=== PATIENT | female | born 2000 | race African-American/Black ===

== ENCOUNTER 2024-08-13 06:34 | Emergency (ER) | payer SELFPAY ==
--- NOTE | ~2024-08-13 | CT_ITS ---
EXAMINATION: CT brain wo con DATE: 08/13/2024 08:48 INDICATION: New migraine headache. TECHNIQUE: Computed tomography (CT) of the head was performed without intravenous contrast. The mA wa s adjusted according to patient size. Iterative reconstruction technique was employed. The dose-lengt h product was 605.33 mGy-cm. COMPARISON: None FINDINGS: There is no intracranial hemorrhage, acute infarction, or abnormal intracranial mass lesion . The ventricles are normal in size. The orbits are normal. There is mild mucosal thickening in the e thmoid sinuses. The mastoid air cells are normal. IMPRESSION: 1. Normal brain. Reviewed, dictated and finalized at location A. IMPRESSION: 1. Normal brain.
[2024-08-13 06:35] VITALS: BP 124/68; PULSE 75; RESP 18; TEMP 36.5; O2SAT 100
[2024-08-13] MEDS: METOCLOPRAMIDE HCL INJ 10 MG/2 ML VIAL IV PUSH (08:55)
[2024-08-13] MEDS: SODIUM CHLORIDE 0.9% IV 1,000 ML 999 ML IV CONT (08:55)
[2024-08-13] MEDS: KETOROLAC 30 MG/ML VIAL (*BKC) IV PUSH (08:55)
[2024-08-13] MEDS: diphenhydrAMINE HCl INJ 50 MG/ML VIAL 25 MG IV PUSH (08:56)
--- OUTSIDE RECORDS SUMMARY | 2024-08-13 09:10 | XMS_ITS | Referral Summary ---
Author Organization [facility] [address] [facility] Address [address] [place] [address] Care Team Providers Care Job Press Feeder Name Role Phone Unknown, Notinfile Primary Care Provider Unavail able Allergies No known active allergies Medications medroxyPROGESTERon e (PROVERA) 10 mg tablet Take 1 tablet (10 mg total) by mouth daily for 7 days 7 tablet 3 Active ondansetron ODT (ZOFRAN-ODT) 4 mg disintegrating tablet Take 1 tablet (4 mg total) by mouth every 8 (eight) hours as needed for nausea or vomiting 20 tablet 3 Active ketorolac (TORADOL) 10 mg tablet Take 1 tablet (10 mg total) by mouth every 6 (six) hours as needed for pain 20 tablet 3 Active methylPREDNISolone (Medrol, Jared,) 4 mg Dosepack follow package directions 1 packet 4 Active Active Problems Problem Noted Date Diagnosed Date Abdominal pain 07/06/2021 Social History Tobacco Use Types Packs/Day Years Used Date Smoking Tobacco: Unknown Tobacco Cessation:Counseling Given: Not Answered Personal Safety Answer Date Recorded Have you ever been in or are you currently in a harmful physical or emotional relationship or is someone making you feel afraid or unsafe? Denies 12/25/2023 Comments No Sex and Gender Information Value Date Recorded Sex Assigned at Not on file Legal Sex Female 7:22 PM FOOD ADVISER Gender Identity Female 04/25/2021 12:18 AM FOOD ADVISER Sexual Orientation Not on file Last Filed Vital Signs Vital Sign Reading Time Taken Comments Blood Pressure 134/80 12/25/2023 7:01 AM CDT Pulse 112 12/25/2023 7:01 AM CDT Temperature 37.2 C (99 F) 12/25/2023 7:01 AM CDT Respiratory Rate 18 12/25/2023 7:01 AM CDT Oxygen Saturation 97% 12/25/2023 7:01 AM CDT Inhaled Oxygen Concentration - - Weight 101.5 kg (223 lb 12.3 oz) 12/25/2023 7:01 AM CDT Height 149.9 cm (4' 11 ) 12/25/2023 7:01 AM CDT Body Mass Index 45.2 12/25/2023 7:01 AM CDT Plan of Treatment Not on file [place] [address] [address] [employer] [facility]/PPO Address: [place] [id number] [place] [id number] [facility] [employer] [facility] [employer]O Address: [address] [place] [address] [facility] [employer] Care Teams Job Press Feeder Relationship Specialty Start Date End Date Unknown, Notinfile PCP - General 12/25/23
--- OUTSIDE RECORDS SUMMARY | 2024-08-13 09:10 | XMS_ITS | Clinical Summary ---
Author Organization [facility] Address [address] [place] [address] Phone Care Team Providers Care Adhesive Bandage Making Operator Name Role Phone Nicholas Marquez MD Primary Care Provider [phone] Allergies No known active allergies Medications No known medications Active Problems No known active problems Immunizations Immunization Administration Dates Next Due Covid-19, Mrna, Lnp-s, Pf, 1 00 Mcg Or 50 Mcg Dose (MODERNA) 04/25/2021 DTAP/HEPB/IPV Vaccine 07/28/2003,05/19/2003,03/18 DTP Vaccine 06/06/2004 Hepatitis A Vaccine,unspecif ied Formulation 12/20/2004 Hepatitis B Vaccine, Pediatric/adolescent 2002 Hib Vaccine,unspecified Formulation 05/19,07/28/2003,05/19/2003,03/28 Human Papillomavirus (HPV) 9 -valent Vaccine 04/25/2021 Inactivated Polio Vaccine 02/01/2008,06/06/2004 Influenza Vaccine, Quadrivalent, PF 04/25/2021 MMR Vaccine 02/01/2008,06/06/2004 Meningococcal Group B OMV 04/25/2021 Meningococcal MCV4O 09/29/2014,09/19/2014 Meningococcal Vaccine 04/25/2021 Pneumococcal Vaccine Peds - 7 Valent 05/19/2003, 03/28/2003 Pneumococcal Vaccine, Unspec ified Formulation 01/16/2006 TDAP Vaccine 09/29/2014,09/19/2014,02/01/2008 Varicella Vaccine Live 02/01/2008,06/06/2004 Family History Relation Name Status Comments Brother Alive Father Alive Mother Alive Sister Alive Social History Tobacco Use Types Packs/Day Years Used Date Smoking Tobacco: Never Smokeless Tobacco: Never Tobacco Cessation:Counseling Given: Not Answered Alcohol Use Standard Drinks/Week Comments Yes 0 (1 standard drink = 0.6 oz pur e alcohol) occassionally Sexually Active Control Partners Comments Yes Comments Unknown Sex and Gender Information Value Date Recorded Sex Assigned at Not on file Legal Sex Female 12:11 PM CDT Gender Identity Not on file Sexual Orientation Not on file Last Filed Vital Signs Vital Sign Reading Time Taken Comments Blood Pressure 118/84 01/01/2023 2:38 PM CDT Pulse 80 01/01/2023 2:38 PM CDT Temperature 36.7 C (98 F) 01/01/2023 2:38 PM CDT Respiratory Rate 18 01/01/2023 2:38 PM CDT Oxygen Saturation - - Inhaled Oxygen Concentration - - Weight 99.8 kg (220 lb) 01/01/2023 2:38 PM CDT Height 152.4 cm (5') 01/01/2023 2:38 PM CDT Body Mass Index 42.97 01/01/2023 2:38 PM CDT Plan of Treatment Health Maintenance Due Date Last Done Comments Hepatitis C Virus (HCV) Screening 2002 Human Papillomavirus (HPV) Immunization (2 - 3-dose series) 05/23/2021 04/25/2021 Meningococcal B Immunization (2 of 2 - Bexsero SCDM 2-dose series) 10/24/2021 04/25/2021 Pap Smear 12/31/2023 Influenza Immunization (#1) 2024 04/25/2021 SARS-COV-2 Immunization (2 - season) 2024 04/25/2021 DTaP/Tdap/Td Immunization (8 - Td or Tdap) 09/29/2024 09/29/2014, 09/19/2014, 02/01/2008, Additional history exists Respiratory Syncytial Virus (RSV) Immunization (Adult) (1 - 1-dose 75+ series) 2077 Hepatitis B Immunization Completed 004, 05/19/2003, 03/28/2003, Additional history exists Pneumococcal Immunization Combined Aged Out 01/16/2006, 05/19/2003, 03/28/2003 No longer eligible based on patient's age to complete this topic Meningococcal Immunization (ACWY) Completed 04/25/2021, 09/29/2014, 09/19/2014 Rotavirus Immunization Aged Out No lo nger eligible based on patient's age to complete this topic Insurance [place] [address] [place] [address] Care Teams Adhesive Bandage Making Operator Relationship Specialty Start Date End Date Nicholas Marquez MD [address] [place] [address] PCP - General Obstetrics & Gynecology 11/11/22
--- OUTSIDE RECORDS SUMMARY | 2024-08-13 09:10 | XMS_ITS | Data Portability ---
Author Organization [facility] Address [address] 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 Plan of Treatment Reminders Order Date Submit Date Provider Last Modified By Organization Details Last Modified Time Details Appointments ANNUAL 30 2024 10:00A M PATRICIA CHRISTIE NP Not available Not available Not available Lab chlamydia trachomat is + neisseria gonorrhoe ae + trichomon as vaginalis DNA panel, MAYCOL+probe , unspecifi ed specimen 2023 024 [place] [facility], [address], [place] [address], [place], [address], 12/04/2023 07:14:28 test, urine 2023 024 [email or web address] In-Office Order, Internal Use Only DO Not Attach Compendium DO Not Attach Compendium, Do Not Delete/merge, [id number] 09/29/2023 17:09:22 Referral None recorded. Procedures None recorded. Surgeries None recorded. Imaging None recorded. Medication Orders azithromy eber 500 mg tablet 2023 024 [place] [id number], [address] [facility], [place], [place], [id number], 12/02/2023 16:11:28 Lo Loestrin Fe 1 mg-10 mcg (24)/10 mcg (2) tablet 2023 024 [email or web address] [id number], [address] [facility], [place], [place], [id number], ph 10/27/2023 15:23:08 Patient TargetsNo targets recorded. Patient Instructions Encounter Date Encounter Id Patient Instructions Last Modified By Organization Details Last Modified Time 09/10/2023 [id number] A healthy lifestyle: care instructions [email or web address] Not available 09/10/2023 17:19:22 NO UNPROTECTED INTERCOURSE FROM TODAY UNTIL YOUR NEXT VISIT. Use a condom with EVERY sexual encounter to minimize your risk for sexually transmitted infection and unplanned . [email or web address] Not available 09/10/2023 17:19:03 09/23/2023 [id number] You currently have a chlamydia infection. This IS a sexually transmitted infection that you got from your partner. 1. Take Azithromycin 1 gm (one pill) one time. If you throw up after taking the medication, you will need to call the clinic to get another dose. 2. Your partner NEEDS to be treated as well. 3. Do NOT have intercourse with your partner for one week after you BOTH HAVE BEEN TREATED. 4. You should be retested in 2 months. 5. Use a condom with EVERY sexual encounter to minimize your risk for sexually transmitted infection and unplanned . You currently have bacterial vaginosis (BV). This is not a sexually transmitted infection. it is caused by an imbalance of the natural bacteria in your vagina. Insert one applicator in your vagina at bedtime for 5 nights No intercourse during treatment. Do NOT douche as it disturbs the natural balance of bacteria in the vagina and can cause infection. Avoid scented soaps or lotions. Use a basic unscented soap for only the outer skin around your vagina. Wear cotton underwear, avoid thongs, avoid spandex, leggings and wear panty liners daily. You can try probiotics. Use a condom with EVERY sexual encounter to minimize your risk for sexually transmitted infection and unplanned . [email or web address] Not available 09/23/2023 12:09:28 09/29/2023 [id number] A healthy lifestyle: care instructions [email or web address] Not available 09/29/2023 17:09:21 1. Start your pill today 2. Take one tablet of your control at the same time every day. 3. If you forget to take your pill, take it as soon as you remember. 4. If you forget to take your pill for an entire day, take 2 pills the next day. 5. If restarting or just starting your control, use a condom for the first 7 days. 6. Consistent condom use is best, as your control pill do NOT protect against sexually transmitted infections. 7. If you have slight nausea or a mild headache, take the pill at night instead of the morning. 8. If you experience severe abdominal pain, chest pain, headaches unrelieved by Tylenol, difficulty breathing, vision changes or severe leg pain, STOP taking your control pills and go to the nearest ER. [email or web address] Not available 09/29/2023 16:46:01 10/27/2023 [id number] A healthy lifestyle: care instructions [email or web address] Not available 10/27/2023 15:22:40 1. Start your pill today 2. Take one tablet of your control at the same time every day. 3. If you forget to take your pill, take it as soon as you remember. 4. If you forget to take your pill for an entire day, take 2 pills the next day. 5. If restarting or just starting your control, use a condom for the first 7 days. 6. Consistent condom use is best, as your control pill do NOT protect against sexually transmitted infections. 7. If you have slight nausea or a mild headache, take the pill at night instead of the morning. 8. If you experience severe abdominal pain, chest pain, headaches unrelieved by Tylenol, difficulty breathing, vision changes or severe leg pain, STOP taking your control pills and go to the nearest ER. [email or web address] Not available 10/27/2023 15:22:24 12/02/2023 [id number] A healthy lifestyle: care instructions [email or web address] Not available 12/02/2023 16:30:17 Do NOT douche as it disturbs the natural balance of bacteria in the vagina and can cause infection. Avoid scented soaps or lotions. Use a basic unscented soap for only the outer skin around your vagina. Wear cotton underwear, avoid thongs, avoid spandex, leggings and wear panty liners daily. You can try probiotics. Use a condom with EVERY sexual encounter to minimize your risk for sexually transmitted infection and unplanned . [email or web address] Not available 12/02/2023 16:14:35 Reason for Referral None Reported. Results Created Date Observation Date Name Description Value Unit Range Abnormal Flag Note LastModifiedBy Organization Detail LastModifiedTime 09/08/19 24 09/09/2023 INTER PRETA TION: interpretati on: Commen t Not infec cally with HCV unles s early or acute infec tion is suspe cted (whic h may be delay ed in an immun ocomp romis ed indiv idual ), or other evide nce exist s to indic ate HCV infec tion. Not Available [facility] ([facility]) [address], [place], [address], 09/09/2023 13:10:03 09/08/19 24 09/09/2023 HCV ANTIB HAMIDA RFX TO QUANT PCR HCV Ab Non Reacti ve nonrea ctive Not Available [facility] ([facility]) [address] [facility], [place], [address], 09/09/2023 13:10:04 09/08/19 24 09/09/2023 HBSAG SCREE N HBsAg screen Negati ve negati ve Not Available [facility] ([facility]) [address] [place], [address], 09/09/2023 13:10:05 09/08/19 24 09/09/2023 RPR, RFX QN RPR/C ONFIR M TP RPR Non Reacti ve nonrea ctive Not Available [facility] ([facility]) [address] [place], [address], 09/09/2023 13:10:06 09/08/19 24 09/09/2023 HIV AB/P2 4 AG WITH REFLE X HIV Ab/P24 Ag screen Non Reacti ve nonrea ctive HIV Negat marylou HIV-1 /HIV- 2 antib odies and HIV-1 p24 antig en were NOT detec cally. There is no labor atory evide nce of HIV infec tion. Not Available [facility] ([facility]) [address] [facility], [place], [address], 09/09/2023 13:10:07 09/08/19 24 09/10/2023 NUSWA B VAGIN ITIS PLUS (VG+) atopobium vaginae HIGH - 2 score abnormal Not Available [facility] ([facility]) [address] [facility], [place], [address], 09/10/2023 20:09:07 09/08/19 24 09/10/2023 NUA B VAGIN ITIS PLUS (VG+) bvab 2 HIGH - 2 score abnormal Not Available [facility] ([facility]) [address] [facility], [place], [address], 09/10/2023 20:09:07 09/08/19 24 09/10/2023 NUA B VAGIN ITIS PLUS (VG+) megasphaera 1 HIGH - 2 score abnormal Calcu late total score by sloan g the 3 indiv idual bacte rial vagin osis (BV) marke r score s toget her. Total score is inter prete d as follo ws: Total score 0-1: Indic ates the absen ce of BV. Total score 2: Indet ermin ate for BV. Addit ional clini maria ines data shoul d be evalu ated to estab marcus a diagn osis. Total score 3-6: Indic ates the prese nce of BV. This test was devel oped and its perfo rmanc e zachariah cteri stics deter mined by [facility]. It has not been clear ed or appro kyle by the Food and Drug Admin istra tion. Not Available [facility] ([facility]) [address] [facility], [place], [address], 09/10/2023 20:09:07 09/08/19 24 09/10/2023 NUSWA B VAGIN ITIS PLUS (VG+) janine albicans, MAYCOL NEGATI VE negati ve Not Available [facility] ([facility]) [address] [facility], [place], [address], 09/10/2023 20:09:07 09/08/19 24 09/10/2023 NUA B VAGIN ITIS PLUS (VG+) janine glabrata, MAYCOL NEGATI VE negati ve Not Available [facility] ([facility]) [address] [facility], [place], [address], 09/10/2023 20:09:07 09/08/19 24 09/10/2023 NUSWA B VAGIN ITIS PLUS (VG+) trich vag by MAYCOL NEGATI VE negati ve Not Available [facility] ([facility]) [address] [facility], [place], [address], 09/10/2023 20:09:07 09/08/19 24 09/10/2023 NUA B VAGIN ITIS PLUS (VG+) chlamydia trachomatis, MAYCOL POSITI VE negati ve abnormal Not Available [facility] ([facility]) [address] [facility], [place], [address], 09/10/2023 20:09:07 09/08/19 24 09/10/2023 NUA B VAGIN ITIS PLUS (VG+) neisseria gonorrhoeae, MAYCOL NEGATI VE negati ve Not Available [facility] ([facility]) [address] [facility], [place], [address], 09/10/2023 20:09:07 09/29/19 24 09/29/2023 pregn bunny test, urine HCG negati ve Not Available In-Office Order Internal Use Only DO Not Attach Compendium DO Not Attach Compendium, Do Not Delete/merge, [id number] 09/29/2023 17:05:39 12/02/19 24 12/04/2023 CT, NG, TRICH VAG BY MAYCOL chlamydia by MAYCOL NEGATI VE negati ve Not Available [facility] ([facility]) [address] [facility], [place], [address], 12/04/2023 07:14:28 12/02/19 24 12/04/2023 CT, NG, TRICH VAG BY MAYCOL gonococcus by MAYCOL NEGATI VE negati ve Not Available [facility] ([facility]) [address] [facility], [place], [address], 12/04/2023 07:14:28 12/02/19 24 12/04/2023 CT, NG, TRICH VAG BY MAYCOL trich vag by MAYCOL NEGATI VE negati ve Not Available [facility] ([facility]) [address] [facility], [place], [address], 12/04/2023 07:14:28 Result Notes None recorded. Problems Name Problem SNOMED Code Status Onset Date Resolution Date Notes Provider Name and Address Organization Details Recorded Time Obesity 576073569 Active VONDA Ballesteros-PC Attn: Accountin g,[address], [place], [address], [facility] - [facility] 5 15:19:26 Reduced visual acuity 86241130 Active VONDA Ballesteros-PC Attn: Accountin g,[address], [place], [address], [facility] - [facility] 5 15:19:26 Astigmatism 54237784 Active Will Hernandez MD [address], [place], [address], [place] [facility] 5 11:54:17 Problem Notes None recorded. Procedures Surgical History Date Name Laterality Status Provider Name and Address Organization Details Recorded Time 5 Refraction - Manifest completed Will Hernandez MD [address], [place], [address], [place] [facility] 01/19/2015 11:53:49 Imaging Results None recorded. Procedure Notes None recorded. Medical Equipment None Reported. Allergies No known drug allergies Medications Name Sig Start Date Stop Date Status Note LastModified by Organization Details LastModified Time amoxicillin 500 mg capsule TAKE 1 CAPLET BY MOUTH TWICE DAILY 09/07 completed Not Available Not Available Not Available medroxyprog esterone 10 mg tablet 09/07 completed Not Available Not Available Not Available ibuprofen 800 mg tablet 09/07 completed Not Available Not Available Not Available metronidazo le 0.75 % (37.5 mg/5 gram) vaginal gel INSERT 1 APPLICATO RFUL VAGINALLY EVERY DAY AT BEDTIME FOR 5 DAYS 09/28 completed Not Available Not Available Not Available metronidazo le 500 mg tablet TAKE 1 ORAL TABLET 2 TIMES A DAY. DO NOT DRINK ALCOHOL WHILE TAKING THIS MEDICATIO NS. TAKE WITH FOOD 09/07 completed Not Available Not Available Not Available ketorolac 10 mg tablet 09/07 completed Not Available Not Available Not Available azithromyci n 500 mg tablet TAKE 2 TABLETS BY MOUTH EVERY DAY FOR 1 DAY DIRECTED FOR CHLAMYDIA 12/01 completed Not Available Not Available Not Available FeroSul 325 mg (65 mg iron) tablet TAKE 1 TABLET BY MOUTH DAILY 12/01 completed Not Available Not Available Not Available Lo Loestrin Fe 1 mg-10 mcg (24)/10 mcg (2) tablet TAKE 1 TABLET BY MOUTH EVERY DAY DIRECTED 10/26 completed Not Available Not Available Not Available Xulane 150 mcg-35 mcg/24 hr transdermal patch USE DIRECTED 09/07 completed Not Available Not Available Not Available Blisovi Fe 1/20 (28) 1 mg-20 mcg (21)/75 mg (7) tablet TAKE 1 TABLET BY MOUTH EVERY DAY active Not Available Not Available No t Available Vitals Date Recorded Body height Provider Name an d Address Organization Details Last Updated DateTime 09/10/2023 152.4 cm Jennifer Cooper MA [facility] 09/09 17:10:01 Date Recorded Body height Provider Name an d Address Organization Details Last Updated DateTime 09/23/2023 152.4 cm Anant LY Attn: Accounting,[address] [place], [address], [facility] 09/23/2023 12:10:16 Date Recorded Body height Body mass index (BMI) Percentile per age and sex Body mass index (BMI) Body weight Heart rate Systolic blood pressure Diastolic blood pressure Provider Name and Address Organization Details Last Updated DateTime 149.86 cm 99 % 45.2 kg/m2 280994. 69 g 78 /min 80 mm[Hg] 56 mm[Hg] Jennifer Cooper MA [place] [facility] 4 16:45:37 Date Recorded Body height Provider Name an d Address Organization Details Last Updated DateTime 10/27/2023 149.86 cm Anant YL Attn: Accounting,[address] [place], [address], [place] 10/27/2023 15:16:16 Date Recorded Body height Body mass index (BMI) Body mass index (BMI) Percentile per age and sex Body weight Heart rate Systolic blood pressure Diastolic blood pressure Provider Name and Address Organization Details Last Updated DateTime 149.86 cm 45.7 kg/m2 99 % 983195. 67 g 84 /min 105 mm[Hg] 67 mm[Hg] Jennifer Cooper MA [place] 16:14:29 Social History Question Answer Notes LastModified by Organizat ion Details LastModified Time Tobacco Smoking Status Never Smoker JUAN CARLOS Ballesteros Attn: Accounting,[address] [place], [address], [facility] - [facility] 09/29/2014 15:17:47 What Is Your Level Of Alcohol Consumption? Occasional Information not available 09/08/2023 Which Illicit Or Recreational Drugs Have You Used? Marijuana Information not available 09/08/2023 Have There Been Any Changes To Your Family Or Social Situation? No Information no t available 09/08/2023 How Many Years Have You Used Illicit Or Recreational Drugs? 5 Information not available 09/08/2023 What Was The Date Of Your Most Recent Tobacco Screening? 09/08/2023 Information not available 09/08/2023 Do You Have Any Pets? No Information not available 09/08/2023 Difficulty Reading? Yes Information not available 01/19/2015 Do You Have Smoke And Carbon Monoxide Detectors In Your Home? Yes Information not available 09/08/2023 Are You Passively Exposed To Smoke? No Information no t available 09/08/2023 Do You Use Any Illicit Or Recreational Drugs? Yes Information not available 09/08/2023 Difficulty Watching TV? No Information not available 01/19/2015 Have You Used IV Drugs? No Information not available 09/08/2023 Sex: Unknown Functional Status Question Answer Note LastModified by Organizat ion Details LastModified Time Difficulty driving at night? minor don't drive Information not available 01/19/2015 Mental Status None recorded. Family History Nothing Reported. Medical History Condition Response Blood Diseases N Ear or Hearing Problems N Thyroid Problems N Depression N Developmental or Behavioral Disorders N Skin Problems N Premature N Anemia N Constipation N Anxiety Disorder N Diabetes N Muscle, Joint, or Bone Problems N Bedwetting N Vision or Eye Problems N Heart Problems/Murmur N Seizures/Epilepsy N Head Injury/Concussion N Cancer N Asthma N Allergies N ADHD N Bladder or Kidney Problems N Headaches N Chicken Pox N Autism Spectrum Disorder (ASD) N Gynecological History Statement/Question Response Flow Heavy On BCP's at Conception? N STIs/STDs N Duration of Flow (days) 7 Age at Menarche 14 Current Control Method Condoms Age at First Child 2 Frequency of Cycle (Q days) 23 Sexually Active? Y Menses Monthly Y Sexual Problems? N LMP Definite Obstetrics History GPAL:G 0 P 0 0 0 0 Immunizations Vaccine Type Date Status Note Provider Nam e and Address Organization Details Recorded Time DTP 3 completed Ila Tsang [place], [place] [facility] 09/08/2014 16:53:25 DTP 4 completed KHOI [place], [place] [facility] 09/08/2014 16:53:47 DTP 4 diane Tsang [place], [place] [facility] 09/08/2014 16:54:09 DTP 5 completed [place] [facility] 09/08/2014 16:54:21 Tdap 8 completed PATRICIA CHRISTIE NP Attn: Accounting,[address] [place], [address], [place] [facility] 09/08/2023 15:49:03 IPV 3 KHO[place] [facility] 09/08/2014 16:54:49 IPV 4 completed Ila Tsang [place] [facility] 09/08/2014 16:56:27 IPV 4 completed Ila Ts[place] [facility] 09/08/2014 16:56:40 IPV 8 completed PATRICIA CHRISTIE NP Attn: Accounting,[address] [facility], [place], [address], [place] [facility] 09/08/2023 15:49:03 Hib, unspecified formulation 3 completed Ila [place] [facility] 09/08/2014 16:57:12 Hib, unspecified formulation 4 completed Ila [place] [facility] 09/08/2014 16:57:29 IPV 4 completed Ila [place] [facility] 09/08/2014 16:57:43 IPV 5 completed Ila [place] [facility] 09/08/2014 16:58:00 Hep B, unspecified formulation 3 completed PATRICIA CHRISTIE NP Attn: Accounting,[address] [facility], [place], [address], [place] [facility] 09/08/2023 15:49:03 Hep B, unspecified formulation 3 completed PATRICIA CHRISTIE NP Attn: Accounting,[address] [place], [address], [place] [facility] 09/08/2023 15:49:03 Hep B, unspecified formulation 4 completed Ila [place] [facility] 09/08/2014 16:58:59 Hep B, unspecified formulation 4 completed Ila [place] [facility] 09/08/2014 16:59:18 varicella 5 completed Ila [place] [facility] 09/08/2014 16:59:33 varicella 8 completed PATRICIA CHRISTIE NP Attn: Accounting,[address] [place], [address], [place] [facility] 09/08/2023 15:49:03 MMR 5 completed KHOI [place] [facility] 09/08/2014 17:00:06 MMR 8 completed PATRICIA CHRISTIE NP Attn: Accounting,[address] [facility], [place], [address], [place] [facility] 09/08/2023 15:49:03 pneumococcal, unspecified formulation 3 completed Ila [place] [facility] 09/08/2014 17:00:43 pneumococcal, unspecified formulation 4 completed [place]HO[place] [facility] 09/08/2014 17:01:08 pneumococcal, unspecified formulation 6 completed [place] [facility] 09/08/2014 17:01:26 Hep A, unspecified formulation 5 completed Ila [place] [facility] 09/08/2014 17:01:48 Hep A, unspecified formulation 6 completed [place]HO[place] [facility] 09/08/2014 17:02:09 Hib, unspecified formulation 5 completed PATRICIA CHRISTIE NP Attn: Accounting,[address] [facility], [place], [address], [place] [facility] 09/08/2023 15:49:03 Hib, unspecified formulation 4 completed PATRICIA CHRISTIE NP Attn: Accounting,[address] [facility], [place], [address], [place] [facility] 09/08/2023 15:49:03 pneumococcal conjugate PCV 7 4 completed PATRICIA CHRISTIE NP Attn: Accounting,[address] [facility], [place], [address], [place] [facility] 09/08/2023 15:49:03 pneumococcal conjugate PCV 7 3 completed PATRICIA CHRISTIE NP Attn: Accounting,[address] [facility], [place], [place], [address] [place] [address], [place] [facility] 09/08/2023 15:49:03 Tdap 5 completed PATRICIA CHRISTIE NP Attn: Accounting,[address] [facility], [place], [place], [address] [place] [address], [place] [facility] 09/08/2023 15:49:03 Hep B, adolescent or pediatric 3 completed PATRICIA CHRISTIE NP Attn: Accounting,[address] [facility], [place], [address] [place] [address], [place] [facility] 09/08/2023 15:49:03 Meningococcal MCV4O 5 completed PATRICIA CHRISTIE NP Attn: Accounting,[address] [facility], [place], [place], [address] [place] [address], [place] [facility] 09/08/2023 15:49:03 Meningococcal MCV4O 5 completed PATRICIA CHRISTIE NP Attn: Accounting,[address] [facility], [place], [address] [place] [address], [place] [facility] 09/08/2023 15:49:03 DTaP-Hep B-IPV 4 completed PATRICIA CHRISTIE NP Attn: Accounting,[address] [facility], [place], [address] [place] [address], [place] [facility] 09/08/2023 15:49:03 DTaP-Hep B-IPV 4 completed PATRICIA CHRISTIE NP Attn: Accounting,[address] [facility], [place], [address] [place] [address], [place] [facility] 09/08/2023 15:49:03 DTaP-Hep B-IPV 3 completed PATRICIA CHRISTIE NP Attn: Accounting,[address] [facility], [place], [address] [place] [address], [place] [facility] 09/08/2023 15:49:03 Tdap 5 completed Not Available [facility] 06/04/2019 02:43:38 meningococcal B, OMV 1 completed Leonor Good MA [facility], [place] [facility] 05/13/2021 16:24:23 meningococcal MCV4P 1 completed Leon[place] [facility] 05/13/2021 16:24:23 HPV9 1 completed Leonor God[place] [facility] 05/13/2021 16:24:24 Influenza, split virus, quadrivalent, PF 1 completed Leon[place] [facility] 05/13/2021 16:24:24 COVID-19, mRNA, LNP-S, PF, 100 mcg/0.5mL dose or 50 mcg/0.25mL dose 1 completed Leonor Good MA null, [place] [facility] 04/25/2021 12:44:18 Past Encounters Encounter ID Performer Location Encounter Start Date Encounter Closed Date Diagnosis/Indication Diagnosis SNOMED-CT Code Diagnosis ICD10 Code Diagnosis Note [id number] Al Baltazar MA [facility] [address] [place] [address] 09/29/2014 14:19:41 09/29/2014 15:33:42 Well child [id number] Obesity 120230881 Reduced visual acuity 12417630 [id number] [address] 12/15/2014 10:28:52 12/18/2014 10:08:32 General examination of patient [id number] Kayceforrest Mitchell [facility] [address] [place] [address] 01/19/2015 11:04:22 01/23/2015 12:25:09 [facility] [id number] Will Hernandez MD [facility] [address] [place] [address] 02/04/2017 09:45:48 02/04/2017 17:39:18 Regular astigmatism 78077448 H52.502 [id number] Anuj Moreno MD [address] [address] 11/04/2017 10:46:18 11/04/2017 16:46:29 Well child 733521955 Z00.129 Diet education 98128006 Z71.3 Exercises education, guidance, and counseling 310283732 Z71.82 [id number] Anuj Moreno MD [address] [address] 04/25/2021 10:53:28 04/26/2021 11:25:10 Adult health examination 333640769 Z00.00 Diet education 03723114 Z71.3 Exercises education, guidance, and counseling 791499340 Z71.82 [id number] Leonor Good MA [address] [address] 04/25/2021 12:04:49 04/26/2021 14:14:24 Administration of SARS-CoV-2 mRNA vaccine 2413877987 Z23 [id number] PATRICIA CHRISTIE NP [facility] (PARTS AND SERVICE MANAGER) [address] [place] [address] 09/08/2023 15:23:57 09/09/2023 12:43:54 Gynecologic examination 29211810 Z01.[address] exam completedT hyroid WNLDenies any family history of breast, ovarian, pancreatic , endometria l cancer 1. Pap not done; pt is not 212. STI screening {{complete d* decline d}}. Pt verbally consented to HIV3. Pt is using {{condoms* GIORGI patch ring prog estion only pill DMPA Nexplanon IUD BTL}} for control.4. Discussed breast self awareness5 . Educated on STI reduction and prevention . Encouraged condom use.6. Discussed when to return to clinic for /ADVISORY INTERN complaints . Venereal d isease screening [id number] Z11.3 STI screening per patient request. Patient verbally consented to HIV. Contracept ion care management [id number] Z30.9 Contracept marylou options were discussed. Reviewed GIORGI, patch, ring, progestin only pill, DMPA, Nexplanon and IUD. Benefits, risks, side effects and danger signs discussed. The patient would like to use {{condoms* GIORGI patch ring prog estion only pill DMPA Nexplanon IUD}} Vaginal odor [id number] N 89.8 1. Vaginal swab obtained 2. Discussed vaginal hygiene, preventive measures and probiotics . Morbid obesity 118223704 E66.01 Positive s creening for depression on PHQ-9 (Patient Health Questionnaire 9) [id number] 64330 Z13.31 PHQ9 today 15Denies any SI or HIDesires counseling at this time. [id number] PATRICIA CHRISTIE NP [facility] (PARTS AND SERVICE MANAGER) [address] [place] [address] 09/10/2023 16:56:25 09/11/2023 10:16:51 Contraception care management [id number] Z30.9 Risks of hormonal control reviewed, patient was informed of risk including but not limited to thrombosis , embolism, pulmonary embolism, stroke, disability , sexual dysfunctio n & .Risk s of hormonal control reviewed,m enstrual bleeding or no bleeding, weight changes, breast tenderness and mood changes. Patient understand s these risk are increased with smoking. Pt understand s & accepts risks. Instructio ns/warning signs given. Safe sex counseling done. Contracept marylou options were discussed. Reviewed GIORGI, patch, ring, progestin only pill, DMPA, Nexplanon and IUD. Benefits, risks, side effects and danger signs discussed. The patient would like to use {{condoms GIORGI* patch ring prog estion only pill DMPA Nexplanon IUD}}Denie s hx of breast CA, liver disease, DVT, stroke, CVD, hypertensi on, migraine with aura, and seizure medication use. Due to unprotecte d intercours e on 08/29/2023, pt is going to do UPT on 09/12/23 to check for as LMP was 08/17/2023. She has a follow up appointmen t scheduled for 09/23/2023 and if UPT negative will initiate GIORGI. Morbid obesity [id number] E66.01 [id number] PATRICIA CHRISTIE NP [facility] (PARTS AND SERVICE MANAGER) [address] [place] [address] 09/23/2023 12:04:53 09/28/2023 15:47:27 Bacterial vaginosis [id number] N76.0 1. Rx for {{Metronid azole 500 mg 1 PO BID x 7 days Metro gel 0.75% 1 applicator (5g) intravagin ally x 5 nights*}} 2. Discussed vaginal hygiene, preventive measures and probiotics . Chlamydial infection 105 [id number] A74.9 1. RX for {{Azithrom ycin 1gm PO x 1* Doxycyc line 100mg 1 PO BID x 7 days}} sent to the pharmacy. 2. Discussed RTC in 2 months for BELEN 3. Discussed condom use for every encounter. 4. Discussed the warning signs and symptoms of PID and when to go to the ER. 5. Discussed the need for repeat dose if emesis in 23 hours after taking Azithromyc in. 6. Discussed the need for abstinence x 1 week to prevent reinfectio n. [id number] PATRICIA CHRISTIE NP [facility] (PARTS AND SERVICE MANAGER) [address] [place] [address] 09/29/2023 16:26:31 09/30/2023 16:23:32 Contraception care management [id number] Z30.9 Risks of hormonal control reviewed, patient was informed of risk including but not limited to thrombosis , embolism, pulmonary embolism, stroke, disability , sexual dysfunctio n & .Risk s of hormonal control reviewed,m enstrual bleeding or no bleeding, weight changes, breast tenderness and mood changes. Patient understand s these risk are increased with smoking. Pt understand s & accepts risks. Instructio ns/warning signs given. Safe sex counseling done. Contracept marylou options were discussed. Reviewed GIORGI, patch, ring, progestin only pill, DMPA, Nexplanon and IUD. Benefits, risks, side effects and danger signs discussed. The patient would like to use {{condoms GIORGI* patch ring prog estion only pill DMPA Nexplanon IUD}}Denie s hx of breast CA, liver disease, DVT, stroke, CVD, hypertensi on, migraine with aura, and seizure medication use. Initial pr escription of oral contraception [id number] Z30.011 Pt is requesting control pillsLMP: 09/22/2023UP T: Negative todayNo unprotecte d intercours e in the past 2 weeks. No CI to COC1. Discussed warning s/sx, side effects associated with GIORGI and when to go to the ER.2. Discussed need to take GIORGI at the same time every day.3. Discussed condom use with every encounter to reduce risk of STI4. Patient to return in 3 months to discuss side effects.5. RX sent to pharmacy for Lo Loestrin Chlamydial infection 105 [id number] A74.9 1. RX for {{Azithrom ycin 1gm PO x 1* Doxycyc line 100mg 1 PO BID x 7 days}} sent to the pharmacy. 2. Discussed RTC in 2 months for BELEN 3. Discussed condom use for every encounter. 4. Discussed the warning signs and symptoms of PID and when to go to the ER. 5. Discussed the need for repeat dose if emesis in 23 hours after taking Azithromyc in. 6. Discussed the need for abstinence x 1 week to prevent reinfectio n. Morbid obesity [id number] E66.01 [id number] PATRICIA CHRISTIE NP [facility] (PARTS AND SERVICE MANAGER) [address] [place] [address] 10/27/2023 15:08:48 10/28/2023 14:29:21 Surveillance of oral contraception [id number] Z30.41 Insurance will not cover Lo loestrinWi ll change pills to 06/06New RX called [facility] and it will be covered under her insurance Morbid obesity [id number] E66.01 [id number] PATRICIA [facility]STIE [facility] ([facility]S AND SERVICE MANA[facility]) [address] [place] [address] 12/02/2023 16:06:37 12/03/2023 12:07:53 History of sexually transmitted disease [id number] Z86.19 STI screening per patient request.Wa s + for chlamydia on 09/08/2023 and was treated. Will do a BELEN today. Morbid obesity [id number] E66.01 Health Concerns Section Related Observation LastModified by Organization Detai ls LastModified Time None Recorded Concern Status LastModified by Organization Details LastModified Time None Recorded Advance Directives Directive None Recorded Payers Encounter Date Sequence Insurance Name Policy Number Policy Tanner Covered Member ID Tanner Member ID Guarantor Name 09/10/2023 1 [facility] [id number] [facility] 09/23/2023 1 [facility] [id number] [facility] 09/29/2023 1 [facility] [id number] [facility] 10/27/2023 1 [facility] [id number] Jessica Ferris 10/27/2023 2 [place] [facility] Jessica Ferris [id number] Jessica Ferris 12/02/2023 1 [facility] Ant Ferris [id number] Jessica Ferris 12/02/2023 2 [place] [facility] Jessica Ferris [id number] Jessica Ferris Notes Date Note Type Note Provider Name and Address Organization Details Recorded Time 09/10/2023 text/html Jessica bolivar 22yo nulligravida consenting for phone visit today to {{initiate* change}} contraception. Patient is currently using {{condoms* GIORGI POP p atch ring depo provera Nexplanon IU D}} LMP: 08/17/2023 Unprotected intercourse in the past 2 weeks: {{Yes* No}} She used a condom on 08/29/2023 but it came off. Last pap smear: not 21 Last STI testin09/08/2023 Negative Denies any hx of blood clots, stroke, migraines with/without aura, hypertension, lupus, cardiovascular disease, liver disease or cancers. Denies any /ADVISORY INTERN complaints Patient is sexually active with a male partner. Patient has had 4male partners in the past year. PATRICIA CHRISTIE NP Attn: Accounting[address] [place], [address], [facility] 09/10/2023 17:19:50 09/23/2023 text/html Jessica bolivar 22yo nulligravida consenting for phone visit today to review her lab results. LMP: 09/22/2023She was seen in the clinic on 09/08/2023 for vaginal odor.Her results came back positive for bacterial vaginosis and chlamydia.She was negative for GC, TV and yeast.All blood work was negative PATRICIA CHRISTIE NP Attn: [address]ing[address] [place], [address], [facility] 09/23/2023 14:09:03 09/29/2023 text/html Jessica bolivar 22yo nulligravida here to initiate contraception. Patient is currently using condoms and would like to start GIORGI. LMP: 09/22/2023Unprotected intercourse in the past 2 weeks: NoLast pap smear: not 21Last STI testin09/08/2023 + for chlamydia Denies any hx of blood clots, stroke, migraines with/without aura, hypertension, lupus, cardiovascular disease, liver disease or cancers.Denies any /ADVISORY INTERN complaintsPatient is sexually active with a male partner. Patient has had 4 male partners in the past year. PATRICIA CHRISTIE NP Attn: Accounting[address] [place], [address], [facility] 09/29/2023 17:15:08 10/27/2023 text/html Jessica Ferris a 22yo nulligravida consenting for phone visit to discuss her control pills. Patient was seen in the office on 09/29/2023 and we started her on GIORGI. Her insurance company will not cover the Lo Loestrin pills and she has to pay out of pocket.Patient would like to know if we can switch her to a different GIORGI that would be covered.She is liking the pill and remembering to take it daily. PATRICIA CHRISTIE NP Attn: Accounting[address] [place], [address], [facility] 10/27/2023 15:23:56 12/02/2023 text/html Jessica Ferris a 22yo nulligravida here for test of cure today. LMP: 4Denies any vaginal discharge, odor, burning or itching.Denies dyspareunia, dysuria, frequency, urgency or incomplete emptying.Denies flank or abdominal pain. Denies fever, chills, n/v.{{Denies* Admits to}} a new sex partner.Patient is sexually active with a male partner. Patient has had 4 male partners in the past year.{{Denies* Admit s to}} unprotected intercourse.Current contraception: {{condoms GIORGI* POP p atch ring Depo Nexpl anon IUD BTL}}STI screening per patient request. Was + for chlamydia on 09/08/2023 and was treated. Will do a BELEN today. PATRICIA CHRISTIE NP Attn: Accounting, [address] [facility] [place], [address], [place] [facility] 12/02/2023 16:30:51 OBGyn Episode No OBEpisode recorded.
--- OUTSIDE RECORDS SUMMARY | 2024-08-13 09:10 | XMS_ITS | Clinical Summary ---
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 Gender Identity Female 04/25/2021 12:18 AM ENVIRONMENTAL ISSUES INSTRUCTOR Sexual Orientation Not on file Obstetrics History Last Filed Vital Signs Vital Sign Reading [...] 12/25/2023 7:01 AM CDT Plan of Treatment Health Maintenance Due Date Last Done Comments Cervical Cancer Screening 2002 Depression Screening 2002 Hepatitis C Screening 2002 Regular Well Visit/Exam 18-64 2020 HPV Vaccines (2 - 3-dose series) 05/23/2021 04/25/20 21 Meningococcal B Vaccine (2 o f 2 - Bexsero SCDM 2-dose series) 10/24/2021 04/25/2021 Covid-19 Vaccine (2 - 2023-2 5 season) 2024 04/25/2021 Influenza Vaccine (#1) 2024 04/25/2021 DTaP/Tdap/Td Vaccine (8 - Td or Tdap) 09/29/2024 09/29/2014, 09/19/2014, 02/01/2008, Additional history exists Hepatitis B Screening Completed 07/28/2003 , 07/28/2003, 05/19/2003, Additional history exists Pneumococcal vaccine <65 Completed 006, 05/19/2003, 05/19/2003, Additional history exists Varicella Vaccines Completed 02/01/2008, 06/06/2004 Meningococcal Vaccine Completed 04/25/2021 , 09/29/2014, 09/19/2014 Insurance [employer] [facility] Care Teams Book Binder Relationship Specialty Start Date End Date Unknown, Notinfile PCP - General 12/25/23
--- NOTE | 2024-08-13 10:15 | ED.GENADULT ---
HPI - General Adult General Chief complaint: Headache Stated complaint: throbbing right sided pain, headache Time Seen by Provider: 08/13/24 08:14 History of Present Illness HPI narrative: Patient is a 23-year-old female who presents ER with right-sided headache. No history of migraine but has family history of migraine. She woke up at 2:00 a.m.. At 3:00 a.m. she started have some blurring in her right eye. She then developed some ear discomfort and then throbbing headache to the right forehead going along the right side of the head. No photophobia phonophobia though she does get occasional ringing in her ear. No runny nose or sore throat or productive cough. No trauma. Related Data Allergies Allergy/AdvReac Type Severity Reaction Status Date / Time No Known Allergies Allergy Verified 08/13/24 07:26 Review of Systems Review of Systems: All systems reviewed & are unremarkable except as noted in HPI and below Constitutional: Constitutional: Reports no additional constitutional complaints Eyes: Eyes: Reports no additional eye complaints ENT: Reports system reviewed and no additional complaints, except as documented Neurologic: Reports system reviewed and no additional complaints, except as documented PMFSH Past Medical History Medical History (Updated 08/13/24 @ 10:21 by Nirmal Hussein MD) Healthy female adult Surgical History Surgical History (Updated 08/13/24 @ 10:16 by Nirmal Hussein MD) No history of previous surgery Exam Narrative: GENERAL: Well-appearing, well-nourished, and in no acute distress. HEAD: Normocephalic, atraumatic. EYES: PERRLA and EOMI. ENT: Mucous membranes moist. TMs normal bilaterally. CHEST: Clear to auscultation. No respiratory distress. HEART: Regular rate and rhythm. Normal peripheral pulses. EXTREMITIES: Normal range of motion. No edema. SKIN: Warm, dry, no rash. NEURO: Alert and oriented x3. PSYCH: Normal mood and affect. Course Course Emergency Course: Patient resting comfortably. Informed of results. Headache resolved with migraine cocktail. Recommend follow-up with PCP which she has in the next month. Discussed outpatient treatments for headache and migraine that she can do in the interim. Vital Signs Vital signs: Vital Signs Temperature 97.7 F 08/13/24 06:35 Pulse Rate 75 08/13/24 06:35 Respiratory Rate 18 08/13/24 06:35 Blood Pressure 124/68 08/13/24 06:35 Pulse Oximetry 100 08/13/24 06:35 Oxygen Delivery Room Air 08/13/24 06:35 Temperature 97.7 F 08/13/24 06:35 Pulse Rate 75 08/13/24 06:35 Respiratory Rate 18 08/13/24 06:35 Blood Pressure 124/68 08/13/24 06:35 Pulse Oximetry 100 08/13/24 06:35 Oxygen Delivery Room Air 08/13/24 06:35 Medical Decision Making Vital Signs Vital Signs: Vital Signs Temperature 97.7 F 08/13/24 06:35 Pulse Rate 75 08/13/24 06:35 Respiratory Rate 18 08/13/24 06:35 Blood Pressure 124/68 08/13/24 06:35 Pulse Oximetry 100 08/13/24 06:35 Oxygen Delivery Room Air 08/13/24 06:35 Temperature 97.7 F 08/13/24 06:35 Pulse Rate 75 08/13/24 06:35 Respiratory Rate 18 08/13/24 06:35 Blood Pressure 124/68 08/13/24 06:35 Pulse Oximetry 100 08/13/24 06:35 Oxygen Delivery Room Air 08/13/24 06:35 Imaging Data Radiologist's impression: ITS Impressions Head CT 08/13/24 08:52 IMPRESSION: 1. Normal brain. Discharge Plan Discharge Clinical Impression: Headache Patient Disposition: Home, Self-Care Condition: Stable Instructions: Migraine Headache (ED) Additional Instructions: Try to stay well hydrated at home. Please return to the emergency department if you develop worsening of your headache or a new headache which is severe, associated with vision changes, associated with neck stiffness or fever, or if it is different from any other headache that you have had before. Return to the emergency department if you develop numbness, weakness or tingling or problems with coordination, or if you develop severe nausea and vomiting and are unable to keep down fluids at home. Patient Language: Romansh Follow-up/Referrals: [facility] [Primary Care Provider] - 1 Week
[2024-08-13 10:42] VITALS: BP 98/65; PULSE 66; RESP 17; O2SAT 100
== END 2024-08-13 10:44 | disposition home or self-care (01) ==
PROVIDERS: Emergency Provider Emergency Medicine
DX: R51.9 Headache, unspecified (principal)
CPT/HCPCS: 70450; 96361; 96374; 96375; 99284; J1200; J1885; J2765; J7030

== ENCOUNTER 2025-03-11 16:51 | Emergency (ER) | payer OTHER, SELFPAY ==
--- NOTE | ~2025-03-11 | US_ITS ---
CORRECTED REPORT corrected exam description to US OB Transvaginal [facility] 03/13/2025 This report was recreated on 03/13/2025. Original report was EXAMINATION: US OB Transvaginal, 03/11/2025 17:50 CDT HISTORY: 6 weeks s/p medical thursday Comparison: None Technique: Bergeron-scale and color Doppler images were obtained. Findings: The uterus is anteverted measuring 10.5 x 5.6 x 6.3 cm. Endometrium is thickened measuring 2.3 cm with subcentimeter areas of increased flow measuring 3 x 4 mm in the fundal uterine cavity. Right ovary 3.2 x 1.6 x 2.6 cm, no adnexal mass, normal flow. Left ovary 1.5 x 2.5 x 1.9 cm, no adnexal mass, normal flow. IMPRESSION: Thickened endometrium detailed above. Minimal increased flow. Retained products of conception are not excluded. Reviewed, dictated and finalized at location P. IMPRESSION: Thickened endometrium detailed above. Minimal increased flow. Retai chelsea products of conception are not excluded.
[2025-03-11 16:52] VITALS: BP 140/87; PULSE 83; RESP 18; TEMP 36.8; O2SAT 100
--- NOTE | 2025-03-11 17:07 | ED_ITS ---
HPI - Abdominal Pain General Chief Complaint: Abdominal Pain Stated Complaint: abd pain Time Seen by Provider: 03/11/25 17:07 Source: patient Mode of arrival: EMS Limitations: no limitations History of Present Illness HPI narrative: Patient is a 24 y/o female who presents to the ED via EMS with report of lower abdominal pain. Patient reports she was approx 6 weeks . Took medical pill Thursday and 4 pills of misoprostol on Thursday. Began having vaginal bleeding afterwards. Is still bleeding, but states bleeding has slowed down. Reports having pain throughout her lower abdomen, intermittent cramping. Tried taking ibuprofen at home without improvement. EMS was called. Reports nausea and vomiting today. Denies fevers. Sees OB with [facility] in [place]. Related Data Allergies Allergy/AdvReac Type Severity Reaction Status Date / Time No Known Allergies Allergy Verified 03/11/25 16:55 Review of Systems 2 Review of Systems: All systems reviewed & are unremarkable except as noted in HPI. All systems reviewed & are unremarkable except as noted in HPI and below PMFSH Past Medical History Medical History Healthy female adult Surgical History Surgical History No history of previous surgery Exam 2 Narrative: GENERAL: Well appearing, morbidly obese with BMI of 51.2, non-toxic, in no acute distress. HEAD: Normocephalic, atraumatic. RESPIRATORY: Airway patent, respirations nonlabored. Clear to auscultation bilaterally, no rales, rhonchi, wheezing. CARDIOVASCULAR: Regular rate and rhythm without murmurs, rubs, or gallops. ABDOMINAL: Soft, mild diffuse tenderness throughout lower abdomen, nondistended. Normoactive BS. MUSCULOSKELETAL: Moves all extremities. No gross deformities. SKIN: Warm, dry, normal color. NEURO: A&O X3. Speech clear. Cranial nerves II-XII grossly intact. Steady gait. No ataxic movements. PSYCHIATRIC: Appropriate mood and affect. Normal interaction. Course Vital Signs Vital signs: Vital Signs Temperature 98.2 F 03/11/25 16:52 Pulse Rate 83 03/11/25 16:52 Respiratory Rate 18 03/11/25 16:52 Blood Pressure 140/87 03/11/25 16:52 Pulse Oximetry 100 03/11/25 16:52 Oxygen Delivery Room Air 03/11/25 16:52 Temperature 98.2 F 03/11/25 16:52 Pulse Rate 83 03/11/25 16:52 Respiratory Rate 18 03/11/25 16:52 Blood Pressure 140/87 03/11/25 16:52 Pulse Oximetry 100 03/11/25 16:52 Oxygen Delivery Room Air 03/11/25 16:52 MDM - Abdominal Pain MDM Narrative Medical decision making narrative: Patient presented to ED with lower abdominal pain. History of medical this week. History of endometriosis. Still having vaginal bleeding, but improved. Vital signs stable upon arrival. Patient in no acute distress. Cbc without leukocytosis. Hemoglobin 10.6. No records to compare to. Patient is otherwise hemodynamically stable. No evidence of hemodynamic compromise. Beta hCG 6102. Ob ultrasound was obtained which showed thickened endometrium, minimal increased flow, cannot exclude retained POC. Blood type is O+, no indication for Rhogam. Patient does still have ongoing mild bleeding. Would not expect to be enitrely complete at this time. Patient sees OBGYN with [facility] in [place], [place]. Attempted to contact office, however unable to reach anyone. Discussed case with Dr. Kiel Meyer, OBGYN net applications developer, advised can f/u with patient. Advised repeat beta hcg on Thursday and f/u in office Thursday for repeat US. Discussed these recommendations with patient, otherwise safe for d/c home. Discussed bleeding precautions, strict return precautions. Patient in agreement with plan. D/C in stable condition. Medical Records Attestation: I reviewed the patient's medical records. Lab Data Attestation: I reviewed the patient's lab results. 03/11/25 17:05 03/11/25 17:05 Labs: Lab Results 03/11/25 03/11/25 Range/Units 17:05 19:00 WBC 8.3 (4.5-10.0) K/mm3 RBC 3.84 L (4.2-5.4) M/mm3 Hgb 10.6 L (12.0-15.0) g/dL Hct 32.8 L (37.0-47.0) % MCV 85.4 (80-100) fl MCH 27.6 (26-34) pg MCHC 32.3 (32-36) g/dl RDW 15.9 H (11.5-14.5) % Plt Count 150 (150-375) k/mm3 MPV 12.2 H (7.4-10.4) fl Immature Gran % (Auto) 0.2 (0-0.5) % Neut % (Auto) 66.3 (45.5-73.1) % Lymph % (Auto) 24.2 (18.3-44.2) % Pettis % (Auto) 7.8 (2.6-8.5) % Eos % (Auto) 1.1 (0-4.4) % Baso % (Auto) 0.4 (0.2-1.2) % Lymph # (Auto) 2.01 (0.9-3.2) K/mm3 Pettis # (Auto) 0.7 H (0.1-0.6) K/mm3 Eos # (Auto) 0.1 (0-0.3) K/mm3 Baso # (Auto) 0.0 (0.0-0.1) K/mm3 Abs Immat Gran (auto) 0.02 (0.00-0.031) K/mm3 Absolute Neuts (auto) 5.5 (1.3-6.7) K/mm3 Absolute Nucleated RBC 0.000 (0.0-0.012) K/mm3 Nucleated RBC % 0.0 (0.0-0.2) % Sodium 137 (137-145) mmol/L Potassium 3.4 (3.4-5.0) mmol/L Chloride 104 (98-107) mmol/L Carbon Dioxide 25 (22-30) mmol/L Anion Gap 8 (4-12) mmol/L BUN 11 (7-17) mg/dL Creatinine 0.61 L (0.7-1.0) mg/dL Estim Creat Clear Calc 146 ml/min Estimated GFR > 60 (59 - ) Glucose 94 (65-110) mg/dL Calcium 8.6 (8.4-10.2) mg/dL Total Bilirubin 0.3 (0.2-1.3) mg/dL AST 25 (14-36) U/L ALT 11 (6-35) U/L Alkaline Phosphatase 51 (38-126) U/L Total Protein 6.9 (6.3-8.2) g/dL Albumin 3.9 (3.5-5.1) g/dL Lipase 57 (23-300) U/L Beta HCG, Quant 6102.40 mIU/ML Blood Type O Positive Antibody Screen Pending Screen TNP Baby's Blood Type TNP Doses of RhIg Required Pending Imaging Data Attestation: I personally reviewed and interpreted this imaging study as follows: Radiologist's impression: ITS Impressions Obstetrics Ultrasound 03/11/25 18:20 IMPRESSION: Thickened endometrium detailed above. Minimal increased flow. Retained products of conception are not excluded. Discharge Plan Discharge Clinical Impression: Incomplete , Intermittent lower abdominal pain Patient Disposition: Home Condition: Stable Instructions: Antibiotic Form, Miscarriage (ED), Abnormal (Dysfunctional) Uterine Bleeding (ED) Additional Instructions: Follow-up closely with OBGYN for further evaluation. You will need to have your hormone level repeated on Thursday. Take lab order sheet with you to outpatient lab at the front of the hospital. You will likely need another ultrasound performed next week. Call Dr. Kiel Meyer's office on Thursday to make appointment. You may still continue to have bleeding. Monitor closely. You may continue Tylenol/ibuprofen/heating pad as needed for pain. Return to the ED if you experience worsening or severe pain, severe bleeding, feeling dizzy or lightheaded, passing out, unable to keep down food or drink, fevers, or any other symptoms of concern. Patient Language: Wallisian Other Ambulatory Orders: Beta HCG Quantitative (Routine) Timeframe: 20250313 Location: Determined by Patient Ordered By: Shaye Melendez Follow-up/Referrals: Pablo Malone MD [Physician, EDUCATIONAL DIRECTOR] Referral Note: [facility] [Primary Care Provider, Unknown] Time of Disposition: 19:21
[2025-03-11 17:11] LABS: Hematocrit 32.8 % (37.0-47.0); Hemoglobin 10.6 g/dL (12.0-15.0); Immature Granulocyte Percent A 0.2 % (0-0.5); Lymphocytes Absolute Auto 2.01 K/mm3 (0.9-3.2); Mean Corpuscular HGB Conc 32.3 g/dl (32-36); Mean Corpuscular Hemoglobin 27.6 pg (26-34); Mean Corpuscular Volume 85.4 fl (80-100); Nucleated Red Blood Cells Absolute Auto 0.000 K/mm3 (0.0-0.012); Nucleated Red Blood Cells Perc 0.0 % (0.0-0.2); Platelet Count Result 150 k/mm3 (150-375); Red Blood Count 3.84 M/mm3 (4.2-5.4); White Blood Count 8.3 K/mm3 (4.5-10.0)
--- OUTSIDE RECORDS SUMMARY | 2025-03-11 17:16 | XMS_ITS | Clinical Summary ---
Author Organization [place] [id number] Address [address] [place] [address] Care Team Providers Care Assembly Line Upholsterer Name Role Phone Unknown, Notinfile Primary Care [...] Noted Date Diagnosed Date Abdominal pain 07/06/2021 Medical History Medical History Date Comments Endometriosis Social History Tobacco Use Types Packs/Day Years Used Date Smoking Tobacco: Unknown Tobacco Cessation:Counseling Given: Not Answered Personal Safety Answer Date Recorded Have you ever been in or are you currently in a harmful physical or emotional relationship or is someone making you feel afraid or unsafe? Denies 09/22/2024 Comments No Sex and Gender Information Value Date Recorded Sex Assigned at Not on file Legal Sex Female 7:22 PM [employer] Gender Identity Female 04/25/2021 12:18 AM [employer] Sexual Orientation Not on file Obstetrics History Last Filed Vital Signs Vital Sign Reading Time Taken Comments Blood Pressure 154/71 09/22/2024 3:19 PM CDT Pulse 74 09/22/2024 3:19 PM CDT Temperature 36.4 C (97.6 F) 09/22/2024 12:52 PM CDT Respiratory Rate 16 09/22/2024 3:19 PM CDT Oxygen Saturation 99% 09/22/2024 3:19 PM CDT Inhaled Oxygen Concentration - - Weight 101.5 kg (223 lb 12.3 oz) 2024 12:52 PM CDT Height 149.9 cm (4' 11) 12/25/2023 7:01 AM CDT Body Mass Index 45.2 12/25/2023 7:01 AM CDT Plan of Treatment Health Maintenance Due Date Last Done Comments Cervical Cancer Screening 2002 Depression Screening 2002 Hepatitis C Screening 2002 Regular Well Visit/Exam 18-64 2020 HPV Vaccines (2 - 3-dose series) 05/23/2021 04/25/20 21 Meningococcal B Vaccine (2 o f 2 - Bexsero SCDM 2-dose series) 10/24/2021 04/25/2021 DTaP/Tdap/Td Vaccine (8 - Td or Tdap) 09/29/2024 09/29/2014, 09/19/2014, 02/01/2008, Additional history exists Covid-19 Vaccine (2 - 2024-2 6 season) 2025 04/25/2021 Influenza Vaccine (#1) 2025 04/25/2021 Hepatitis B Screening Completed 07/28/2003 , 07/28/2003, 05/19/2003, Additional history exists Pneumococcal vaccine <65 Completed 006, 05/19/2003, 05/19/2003, Additional history exists Varicella Vaccines Completed 02/01/2008, 06/06/2004 Insurance [facility] [employer] [employer] [facility] FOR[facility]LY [facility]AN [place] Care Teams Assembly Line Upholsterer Relationship Specialty Start Date End Date Unknown, Notinfile PCP - General 12/25/23
--- OUTSIDE RECORDS SUMMARY | 2025-03-11 17:16 | XMS_ITS | Data Portability ---
[facility] Address [address] [place] [address] Care Team Providers Care Records Associate Name Role Phone ANUJ MORENO Primary Care Provider [phone] Assessment No assessment recorded. Plan of Treatment Reminders Order Date Submit Date Provider Last Modified By Organization Details Last Modified Time Details Appointments None recorded. Lab vaginal pathogens panel, MAYCOL+probe, vaginal fluid 2024 025 [facility], [address], [place], [address], 5 06:12:03 cytology report, thin prep, smear or scraping, cervical or vaginal 2024 025 [facility], [address], [place], [address], 5 17:23:01 HIV 1 + 2, meaningful use set 2024 025 [facility], [address], [place], [address], 5 06:12:07 RPR (rapid plasma reagin), serum 2024 025 [facility], [address], [place], [address], 5 06:12:05 HBsAg (hepatitis B surface Ag), EIA, serum 2024 025 [facility], [address], [place], [address], 5 06:12:04 Hepatitis C IgG Ab, qual, serum 2024 025 [facility], [address], [place], [address], 5 06:12:02 chlamydia trachomatis + neisseria gonorrhoeae + trichomonas vaginalis DNA panel, MAYCOL+probe, unspecified specimen 2023 024 [facility], [address], [place], [address], 4 07:14:28 test, urine 2023 024 [email or web address] 0 In-Office Order, Internal Use Only DO Not Attach Compendium DO Not Attach Compendium, Do Not Delete/merge, [id number] 4 17:09:22 Referral None recorded. Procedures None recorded. Surgeries None recorded. Imaging None recorded. Medication Orders azithromyci n 500 mg tablet 2023 024 GO[id number], [address], [place], [id number], 4 16:11:28 Lo Loestrin Fe 1 mg-10 mcg (24)/10 mcg (2) tablet 2023 024 [email or web address] 0 [id number], [address] [facility], [place], [place], [id number], 4 15:23:08 Patient TargetsNo targets recorded. Patient Instructions Encounter Date Encounter Id Patient Instructions Last Modified By Organization Details Last Modified Time 09/23/2023 [id number] You currently have a chlamydia infection. This [...] for sexually transmitted infection and unplanned . Not available 09/23/2023 12:09:28 09/29/2023 [id number] A healthy lifestyle: care instructions [email or web address] Not available 09/29/2023 17:09:21 1. Start your [...] pills and go to the nearest ER. [email or web address] Not available 09/29/2023 16:46:01 10/27/2023 [id number] A healthy lifestyle: care instructions [email or web address] Not available 10/27/2023 15:22:40 1. Start your [...] pills and go to the nearest ER. [email or web address] Not available 10/27/2023 15:22:24 12/02/2023 [id number] A healthy lifestyle: care instructions [email or web address] Not available 12/02/2023 16:30:17 Do NOT douche [...] for sexually transmitted infection and unplanned . [email or web address] Not available 12/02/2023 16:14:35 09/09/2024 [id number] A healthy lifestyle: care instructions [email or web address] Not available 09/09/2024 11:45:05 Your women's health annual exam today was unremarkable. Continue to practice breast self awareness like we discussed. Come back to the office with any breast changes, nipple discharge, change to your menstrual cycle, or with complaints of unusual odorous discharge. Otherwise, come back in 1 year for your next well woman annual exam. Do NOT douche as it disturbs the [...] for sexually transmitted infection and unplanned . Not available 09/09/2024 11:44:38 Reason for Referral None Reported. Results Created [...] ate HCV infec tion. Not Available [facility] ([facility]) [address] [facility], [place], [address], 09/09/2023 13:10:03 09/08/19 24 09/09/2023 HCV ANTIB HAMIDA RFX TO QUANT PCR HCV Ab Non Reacti ve nonrea ctive Not Available [facility] ([facility]) [address] [place], [address], 09/09/2023 13:10:04 09/08/19 24 09/09/2023 HBSAG SCREE N HBsAg screen Negati ve negati ve Not Available [facility] ([facility]) [address] [place], [address], 09/09/2023 13:10:05 09/08/19 24 09/09/2023 RPR, RFX QN RPR/C ONFIR M TP RPR Non Reacti ve nonrea ctive Not Available [facility] ([facility]) [address] [place], [address], 09/09/2023 13:10:06 09/08/19 24 09/09/2023 HIV AB/P2 4 AG WITH REFLE X HIV Ab/P24 Ag screen Non Reacti ve nonrea ctive HIV Negat marylou HIV-1 /HIV- 2 antib odies and HIV-1 p24 antig en were NOT detec cally. There is no labor atory evide nce of HIV infec tion. Not Available [facility] ([facility]) [address] [facility], [place], [address], 09/09/2023 13:10:07 09/08/19 24 09/10/2023 NUA B VAGIN ITIS PLUS (VG+) atopobium vaginae HIGH - 2 score abnormal Not Available [facility] ([facility]) [address] [facility], [place], [address], 09/10/2023 20:09:07 09/08/19 24 09/10/2023 NUA B VAGIN ITIS PLUS (VG+) bvab 2 HIGH - 2 score abnormal Not Available [facility] ([facility]) [address] [facility], [place], [address], 09/10/2023 20:09:07 09/08/19 24 09/10/2023 NUA B [...] Drug Admin istra tion. Not Available [facility] ([facility]) [address] [facility], [place], [address], 09/10/2023 20:09:07 09/08/19 24 09/10/2023 NUA B VAGIN ITIS PLUS (VG+) janine albicans, MAYCOL NEGATI VE negati ve Not Available [facility] ([facility]) [address] [facility], [place], [address], 09/10/2023 20:09:07 09/08/19 24 09/10/2023 NUA B VAGIN ITIS PLUS (VG+) janine glabrata, MAYCOL NEGATI VE negati ve Not Available [facility] ([facility]) [address] [place], [address], 09/10/2023 20:09:07 09/08/19 24 09/10/2023 NUA B VAGIN ITIS PLUS (VG+) trich vag by MAYCOL NEGATI VE negati ve Not Available [facility] ([facility]) [address] [facility], [place], [address], 09/10/2023 20:09:07 09/08/19 24 09/10/2023 NUA B VAGIN ITIS PLUS (VG+) chlamydia trachomatis, MAYCOL POSITI VE negati ve abnormal Not Available [facility] ([facility]) [address] [place], [address], 09/10/2023 20:09:07 09/08/19 24 09/10/2023 NUA B VAGIN ITIS PLUS (VG+) neisseria gonorrhoeae, MAYCOL NEGATI VE negati ve Not Available [facility] ([facility]) [address] [place], [address], 09/10/2023 20:09:07 09/29/19 24 09/29/2023 pregn bunny test, urine HCG negati ve Not Available In-Office Order Internal Use Only DO Not Attach Compendium DO Not Attach Compendium, Do Not Delete/merge, [id number] 09/29/2023 17:05:39 12/02/19 24 12/04/2023 CT, NG, TRICH VAG BY MAYCOL chlamydia by MAYCOL NEGATI VE negati ve Not Available [facility] ([facility]) [address] [place], [address], 12/04/2023 07:14:28 12/02/19 24 12/04/2023 CT, NG, TRICH VAG BY MAYCOL gonococcus by MAYCOL NEGATI VE negati ve Not Available [facility] ([facility]) [address] [facility], [place], [address], 12/04/2023 07:14:28 12/02/19 24 12/04/2023 CT, NG, TRICH VAG BY MAYCOL trich vag by MAYCOL NEGATI VE negati ve Not Available [facility] ([facility]) [address] [facility], [place], [address], 12/04/2023 07:14:28 09/10/19 25 09/10/2024 INTER PRETA TION: interpretati on: Commen t Not infec cally with HCV unles s early or acute infec tion is suspe cted (whic h may be delay ed in an immun ocomp romis ed indiv idual ), or other evide nce exist s to indic ate HCV infec tion. Not Available [facility] ([facility]) [address] [facility], [place], [address], 09/12/2024 06:12:01 09/10/1909/10/2024 HCV ANTIB HAMIDA RFX TO QUANT PCR HCV Ab NON REACTI VE nonrea ctive Not Available [facility] ([facility]) [address] [place], [address], 09/12/2024 06:12:01 09/10/19 25 09/10/2024 NUSWA B VAGIN ITIS PLUS (VG+) atopobium vaginae LOW - 0 score Not Available [facility] ([facility]) [address] [place], [address], 09/12/2024 06:12:03 09/10/19 25 09/10/2024 NUSWA B VAGIN ITIS PLUS (VG+) bvab 2 LOW - 0 score Not Available [facility] ([facility]) [address] [place], [address], 09/12/2024 06:12:03 09/10/1909/10/2024 NUSWA B VAGIN ITIS PLUS (VG+) megasphaera 1 LOW - 0 score Calcu late total score by sloan g [...] Indic ates the prese nce of BV. Not Available [facility] ([facility]) [address] [place], [address], 09/12/2024 06:12:03 09/10/1909/10/2024 NUSWA B VAGIN ITIS PLUS (VG+) janine albicans, MAYCOL NEGATI VE negati ve Not Available [facility] ([facility]) [address] [place], [address], 09/12/2024 06:12:03 09/10/1909/10/2024 NUSWA B VAGIN ITIS PLUS (VG+) janine glabrata, MAYCOL NEGATI VE negati ve Not Available [facility] ([facility]) [address] [place], [address], 09/12/2024 06:12:03 09/10/1909/12/2024 NUSWA B VAGIN ITIS PLUS (VG+) trich vag by MAYCOL NEGATI VE negati ve Not Available [facility] ([facility]) [address] [place], [address], 09/12/2024 06:12:03 04/25/20 25 09/12/2024 NUSWA B VAGIN ITIS PLUS (VG+) chlamydia trachomatis, MAYCOL NEGATI VE negati ve Not Available [facility] ([facility]) [address] [facility], [place], [address], 09/12/2024 06:12:03 09/10/19 25 09/12/2024 NUSWA B VAGIN ITIS PLUS (VG+) neisseria gonorrhoeae, MAYCOL NEGATI VE negati ve Not Available [facility] ([facility]) [address] [facility], [place], [address], 09/12/2024 06:12:03 09/10/19 25 09/10/2024 HBSAG SCREE N HBsAg screen NEGATI VE negati ve Not Available [facility] ([facility]) [address] [facility], [place], [address], 09/12/2024 06:12:04 09/10/19 25 09/10/2024 RPR, RFX QN RPR/C ONFIR M TP RPR NON REACTI VE nonrea ctive Not Available [facility]) [address] [facility], [place], [address], 09/12/2024 06:12:05 09/10/19 25 09/10/2024 HIV AB/P2 4 AG WITH REFLE X HIV Ab/P24 Ag screen NON REACTI VE nonrea ctive HIV-1 /HIV- 2 antib odies and HIV-1 p24 antig en were NOT detec cally. There is no labor atory evide nce of HIV infec tion. HIV Negat marylou Not Available [facility] ([facility]) [address] [facility], [place], [address], 09/12/2024 06:12:07 09/10/19 25 09/15/2024 IGP, RFX APTIM A HPV ASCU diagnosis: COMMEN T abnormal EPITH ELIAL CELL ABNOR MALIT Y. LOW GRADE SQUAM OUS INTRA EPITH ELIAL LESIO N (LSIL ). Not Available [facility] ([facility]) [address] [place], [address], 09/15/2024 17:23:01 09/10/19 25 09/15/2024 IGP, RFX APTIM A HPV ASCU specimen adequacy: AMILCAR Mixon Satis guerlineo ry for evalu ation . Endoc ervic al and/o r squam ous metap lasti c cells (endo cervi maria ines compo nent) are prese nt. Not Available [facility] ([facility]) [address] [place], [address], 09/15/2024 17:23:01 09/10/19 25 09/15/2024 IGP, RFX APTIM A HPV ASCU clinician provided ICD10: AMILCAR Mixon Z01.4 19 Not Available [facility] ([facility]) [address] [place], [address], 09/15/2024 17:23:01 09/10/19 25 09/15/2024 IGP, RFX APTIM A HPV ASCU performed by: AMILCAR Malin sh, Cytol ogist (ASCP ) Not Available [facility] ([facility]) [address] [place], [address], 09/15/2024 17:23:01 09/10/19 25 09/15/2024 IGP, RFX APTIM A HPV ASCU electronical ly signed by: AMILCAR dubon MD, Patho logis t Not Available [facility] ([facility]) [address] [place], [address], 09/15/2024 17:23:01 09/10/19 25 09/15/2024 IGP, RFX APTIM A HPV ASCU . . Not Available [facility] ([facility]) [address] [place], [address], 09/15/2024 17:23:01 09/10/19 25 09/15/2024 IGP, RFX APTIM A HPV ASCU pathologist provided ICD10: AMILCAR T R87.6 12 Not Available [facility] ([facility]) [address] [place], [address], 09/15/2024 17:23:01 09/10/19 25 09/15/2024 IGP, RFX APTIM A HPV ASCU note: COMMEN T The Pap smear is a scree gonzález test desig [place] to aid in the detec tion of janeth ligna nt and malig nant condi tions of the uteri ne cervi x. It is not a diagn ostic proce dure and shoul d not be used as the sole means of detec ting cervi maria ines cance r. Both false -posi tive and false -nega tive repor ts do occur . Not Available [facility] ([facility]) [address] [place], [address], 09/15/2024 17:23:01 09/10/19 25 09/15/2024 IGP, RFX APTIM A HPV ASCU test methodology: COMMEN T This liqui d based ThinP rep(R ) pap test was scree [place] with the use of an image guide tristan bray. Not Available [facility] ([facility]) [address] [place], [address], 09/15/2024 17:23:01 09/10/19 25 09/15/2024 IGP, RFX APTIM A HPV ASCU . COMMEN T The HPV DNA refle x crite [place] were not met with this speci men resul t there fore, no HPV testi ng was perfo rmed. Not Available [facility] ([facility]) [address] [place], [address], 09/15/2024 17:23:01 Result Notes None recorded. Problems Name Problem SNOMED Code Status Onset Date Resolution Date Notes Provider Name and Address Organization Details Recorded Time Obesity 147949746 Active JUAN CARLOS Ballesteros Attn: Jaylen g,[address] [facility], [place], [address], [facility] 5 15:19:26 Reduced visual acuity 32297212 Active JUAN CARLOS Ballesteros Attn: Jaylen whitley,[address], [place], [address], [facility] - [facility] 5 15:19:26 Astigmatism 01979120 Active Will Hernandez MD [address] [place], [address], [facility] 5 11:54:17 Problem Notes None recorded. Procedures Surgical History Date Name Laterality Status Provider Name and Address Organization Details Recorded Time Date of Last Pap Smear completed PATRICIA CHRISTIE NP Attn: Accounting,[address], [place], [address], [facility] 09/16/2024 17:29:54 Refraction - Manifest completed Will Hernandez MD [address] [place], [address], [facility] 01/19/2015 11:53:49 Imaging Results None recorded. Procedure Notes None recorded. Medical Equipment None Reported. Allergies No known drug allergies Medications Name Sig Start Date Stop Date Status Note LastModified by Organization Details LastModified Time amoxicillin 500 mg capsule TAKE 1 CAPLET BY MOUTH TWICE DAILY 09/09 completed Not Available Not Available Not Available [...] completed Not Available Not Available Not Available methylpredn isolone 4 mg tablets in a dose pack FOLLOW PACKAGE DIRECTION S 09/09 completed Not Available Not Available Not Available [...] Available Not Available Not Available Blisovi Fe / (28) 1 mg-20 mcg (21)/75 mg (7) tablet TAKE 1 TABLET BY MOUTH EVERY DAY 09/09 completed Not Available Not Available Not Available Vitals Date Recorded Body height Body mass index (BMI) Body weight Heart rate Systolic And Diastolic Provider Name and Address Organization Details Last Updated DateTime 09/09/2024 149.86 cm 48.1 kg/m2 290410.1 3 g 84 /min 100/70 mm[Hg] Britni Campos MA [facility] 09/09/2024 11:26:05 Date Recorded Body height Provider Name an d Address Organization Details Last Updated DateTime 09/23/2023 152.4 cm Anant LY Attn: Accounting,[address] [place], [address], [facility] 09/23/2023 12:10:16 Date Recorded Body height Body mass index (BMI) [Percentile] Per age and sex Body mass index (BMI) Body weight Heart rate Systolic And Diastolic Provider Name and Address Organization Details Last Updated DateTime 149.86 cm 99 % 45.2 kg/m2 779865. 69 g 78 /min 80/56 mm[Hg] Jennifer Cooper MA [facility] 16:45:37 Date Recorded Body height Provider Name an d Address Organization Details Last Updated DateTime 10/27/2023 149.86 cm Anant LY Attn: Accounting,[address] [place], [address], [facility] 10/27/2023 15:16:16 Date Recorded Body height Body mass index (BMI) Body mass index (BMI) [Percentile] Per age and sex Body weight Heart rate Systolic And Diastolic Provider Name and Address Organization Details Last Updated DateTime 4 149.86 cm 45.7 kg/m2 99 % 811447. 67 g 84 /min 105/67 mm[Hg] Jennifer Cooper MA [place] [facility] 4 16:14:29 Social History Question Answer Notes LastModified by [employer] Details LastModified Time Tobacco Smoking Status Never Smoker JUAN CARLOS Ballesteros Attn: Accounting,[address] [place], [address], [facility] 09/29/2014 15:17:47 Which Illicit Or Recreational Drugs Have You Used? Marijuana Information not available 09/08/2023 Have There Been Any Changes To Your Family Or Social Situation? No Information no t available 09/08/2023 How Many Years Have You Used Illicit Or Recreational Drugs? 5 Information not available 09/08/2023 What Was The Date Of Your Most Recent Tobacco Screening? 09/09/2024 [email or web address] Information not available 09/09/2024 Do You Have Any Pets? No Information not available 09/08/2023 Difficulty Reading? Yes Information not available 01/19/2015 Do You Have Smoke And Carbon Monoxide Detectors In Your Home? Yes Information not available 09/08/2023 Are You Passively Exposed To Smoke? No Information no t available 09/08/2023 Difficulty Watching TV? No Information not available 01/19/2015 Have You Used IV Drugs? No Information not available 09/08/2023 Sex: Unknown Functional Status Question Answer Note LastModified by [employer] Details LastModified Time Do you use any illicit or recreational drugs? Yes Information not available 09/08/2023 What is your level of alcohol consumption? Occasional Information not available 09/08/2023 [address]iculty [address] at night? minor don't drive [...] Disorder (ASD) N Gynecological History Statement/Question Response Abnormal Pap Flow Heavy On BCP's at Conception? N STIs/STDs N Duration of Flow (days) 7 Age at Menarche 14 Current Control Method Condoms Age at First Child 2 Frequency of Cycle (Q days) 23 Sexually Active? Y Menses Monthly Y Date of Last Pap Smear 09/09/2024 Sexual Problems? N LMP Definite Obstetrics History GPAL:G 0 P 0 0 0 0 Immunizations Vaccine Type Date Status Note Provider Nam e and Address Organization Details Recorded Time DTP 3 completed KHOI Goins, [place] [facility] 09/08/2014 16:53:25 DTP 4 completed Ila Tsang [place], [place] [facility] 09/08/2014 16:53:47 DTP 4 completed Ila Ts[place] [facility] 09/08/2014 16:54:09 DTP 5 completed [place]la [place] [facility] 09/08/2014 16:54:21 Tdap 8 completed PATRICIA CHRISTIE NP Attn: Accounting,[address] [place], [address], [place] [facility] 09/08/2023 15:49:03 IPV 3 completed KHOI [place] [facility] 09/08/2014 16:54:49 IPV 4 completed Ila Ts[place] [facility] 09/08/2014 16:56:27 IPV 4 completed Ila [place] [facility] 09/08/2014 16:56:40 IPV 8 completed PATRICIA CHRISTIE, [employer] Attn: Accounting,[address] [facility], [place], [address], [place] [facility] 09/08/2023 15:49:03 Hib, unspecified [...] completed PATRICIA CHRISTIE NP Attn: Accounting,[address] [facility], [place], [address], [place] [facility] 09/08/2023 15:49:03 Hep B, unspecified formulation 3 completed PATRICIA CHRISTIE NP Attn: Accounting,[address] [facility], [place], [address], [place] [facility] 09/08/2023 15:49:03 Hep B, unspecified formulation 4 completed Ila [place] [facility] 09/08/2014 16:58:59 Hep B, unspecified formulation 4 completed Ila [place] [facility] 09/08/2014 16:59:18 varicella 5 completed Ila [place] [facility] 09/08/2014 16:59:33 varicella 8 completed PATRICIA CHRISTIE NP Attn: Accounting,[address] [facility], [place], [address], [place] [facility] 09/08/2023 15:49:03 MMR 5 completed Ila [place] [facility] 09/08/2014 17:00:06 MMR 8 completed PATRICIA CHRISTIE NP Attn: Accounting,[address] [facility], [place], [address], [place] [facility] 09/08/2023 15:49:03 pneumococcal, unspecified formulation 3 completed [place]la [place] [facility] 09/08/2014 17:00:43 pneumococcal, unspecified formulation 4 completed [place]la [place] [facility] 09/08/2014 17:01:08 pneumococcal, unspecified formulation 6 completed [place]la [place] [facility] 09/08/2014 17:01:26 Hep A, unspecified formulation 5 completed [place]la [place] [facility] 09/08/2014 17:01:48 Hep A, unspecified formulation 6 completed Ial [place] [facility] 09/08/2014 17:02:09 Hib, unspecified formulation 5 completed PATRICIA CHRISTIE NP Attn: Accounting,[address] [facility], [place], [address], [place] [facility] 09/08/2023 15:49:03 Hib, unspecified formulation 4 completed PATRICIA CHRISTIE NP Attn: Accounting,[address] [facility], [place], [address], [place] [facility] 09/08/2023 15:49:03 pneumococcal conjugate PCV 7 4 completed PATRICIA CHRISTIE NP Attn: Accounting,[address] [facility], [place], [address], [place] [facility] 09/08/2023 15:49:03 pneumococcal conjugate PCV 7 3 completed PATRICIA CHRISTIE NP Attn: Accounting,[address] [facility], [place], [address], [place] [facility] 09/08/2023 15:49:03 Tdap 5 completed PATRICIA CHRISTIE NP Attn: Accounting,[address] [facility], [place], [address], [place] [facility] 09/08/2023 15:49:03 Hep B, adolescent or pediatric 3 completed PATRICIA CHRISTIE NP Attn: Accounting,[address] [facility], [place], [address], [place] [facility] 09/08/2023 15:49:03 Meningococcal MCV4O 5 completed PATRICIA CHRISTIE NP Attn: Accounting,[address] [facility], [place], [address], [place] [facility] 09/08/2023 15:49:03 Meningococcal MCV4O 5 completed PATRICIA CHRISTIE NP Attn: Accounting,[address] [facility], [place], [address], [place] [facility] 09/08/2023 15:49:03 DTaP-Hep B-IPV 4 completed PATRICIA CHRISTIE NP Attn: Accounting,[address] [facility], [place], [address], [place] [facility] 09/08/2023 15:49:03 DTaP-Hep B-IPV 4 completed PATRICIA CHRISTIE NP Attn: Accounting,[address] [facility], [place], [address], [place] [facility] 09/08/2023 15:49:03 DTaP-Hep B-IPV 3 completed PATRICIA CHRISTIE NP Attn: Accounting,[address] [facility], [place], [address], [place] [facility] 09/08/2023 15:49:03 Tdap 5 completed Not Available [facility] 06/04/2019 02:43:38 meningococcal B, OMV 1 completed Leonor [place] [facility] 05/13/2021 16:24:23 meningococcal MCV4P 1 completed Leon[place] [facility] 05/13/2021 16:24:23 HPV9 1 completed Leon[place] [facility] 05/13/2021 16:24:24 Influenza, split virus, quadrivalent, PF 1 completed Leon[place] [facility] 05/13/2021 16:24:24 COVID-19, mRNA, LNP-S, PF, 100 mcg/0.5mL dose or 50 mcg/0.25mL dose 1 completed Leonor Good [place], [place] [facility] 04/25/2021 12:44:18 Past Encounters Encounter ID Performer Location Encounter Start Date Encounter Closed Date Diagnosis/Indication Diagnosis SNOMED-CT Code Diagnosis ICD10 Code Diagnosis IMO Codes Diagnosis Note [id number] Mathew carlson MD [facility] [address] [place] [address] 09/29/2014 14:19:41 09/29/2014 15:33:42 Well child [id number] Obesity 800883425 Reduced visual acuity 40868795 [id number] Anuj Moreno MD [address] [address] 12/15/2014 10:28:52 12/18/2014 10:08:32 General examination of patient [id number] Will Hernandez MD [facility] [address] [place] [address] 01/19/2015 11:04:22 01/23/2015 12:25:09 Astigmatism 39192035 [id number] Wlil Hernandez MD [facility] [address] [place] [address] 02/04/2017 09:45:48 02/04/2017 17:39:18 Regular astigmatism 93026206 H52.209 [id number] Anuj Moreno MD [address] [address] 11/04/2017 10:46:18 11/04/2017 16:46:29 Well child 821432341 Z00.129 Diet education 92295083 Z71.3 Exercises education, guidance, and counseling 001938167 Z71.82 [id number] Anuj Moreno MD [address] [address] 04/25/2021 10:53:28 04/26/2021 11:25:10 Adult health examination 833789848 Z00.00 Diet education 91237351 Z71.3 Exercises education, guidance, and counseling 548287288 Z71.82 [id number] Kelechi Cancino MD [address] [address] 3 04/25/2021 12:04:49 04/26/2021 14:14:24 Administration of SARS-CoV-2 mRNA vaccine [id number] Z23 [id number] Deepti Mesa MD [facility] (COMPLIANCE PROJECT MANAGER) [address] [place] [address] 09/08/2023 15:23:57 09/09/2023 12:43:54 Gynecologic examination [id number] Z01.419 Polysomnographic Technologist exam completedT hyroid WNLDenies any family history of breast, ovarian, pancreatic , endometria l cancer 1. Pap not done; pt is not 212. STI screening completed. Pt verbally consented to HIV3. Pt is using condoms for control.4. Discussed breast self awareness5 . Educated on STI reduction and prevention . Encouraged condom use.6. 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 Venereal d isease screening [id number] Z11.3 STI screening per patient request. Patient verbally consented to HIV. Contracept ion care management 096967765 Z30.9 Contracept marylou options were discussed. Reviewed GIORGI, patch, ring, progestin only pill, DMPA, Nexplanon and IUD. Benefits, risks, side effects and danger signs discussed. The patient would like to use condoms Vaginal odor 572906999 N 89.8 1. Vaginal swab obtained 2. Discussed vaginal hygiene, preventive measures and probiotics . Morbid obesity 642242997 E66.01 Positive s creening for depression on PHQ-9 (Patient Health Questionnaire 9) [id number] 24294 Z13.31 PHQ9 today 15Denies any SI or HIDesires counseling at this time. [id number] Deepti Mesa MD [facility] (COMPLIANCE PROJECT MANAGER) [address] [place] [address] 09/10/2023 16:56:25 09/11/2023 10:16:51 Contraception care management 031274305 Z30.9 Risks of hormonal control reviewed, patient [...] discussed. The patient would like to use COCDenies hx of breast CA, liver disease, DVT, stroke, CVD, hypertensi on, migraine with aura, and seizure medication use. Due to unprotecte d intercours e on 08/29/2023, pt is going to do UPT on 09/12/23 to check for as LMP was 08/17/2023. She has a follow up appointmen t scheduled for 09/23/2023 and if UPT negative will initiate GIORGI. Morbid obesity 102301684 E66.01 [id number] Deepti Mesa MD [facility] (COMPLIANCE PROJECT MANAGER) [address] [place] [address] 09/23/2023 12:04:53 09/28/2023 15:47:27 Bacterial vaginosis [id number] N76.0 1. Rx for Metrogel 0.75% 1 applicator (5g) intravagin ally x 5 nights 2. Discussed vaginal hygiene, preventive measures and probiotics . Chlamydial infection 105 273828 A74.9 1. RX for Azithromyc in 1gm PO x 1 sent to the pharmacy. 2. Discussed RTC [...] x 1 week to prevent reinfectio n. [id number] Deepti Mesa MD [facility] (COMPLIANCE PROJECT MANAGER) [address] [place] [address] 09/29/2023 16:26:31 09/30/2023 16:23:32 Contraception care management [id number] Z30.9 Risks of hormonal control reviewed, patient [...] signs given. Safe sex counseling done. Contracept marlyou options were discussed. Reviewed GIORGI, patch, ring, progestin only pill, DMPA, Nexplanon and IUD. Benefits, risks, side effects and danger signs discussed. The patient would like to use COCDenies hx of breast CA, liver disease, DVT, stroke, CVD, hypertensi on, migraine with aura, and seizure medication use. Initial pr escription of oral contraception [id number] Z30.011 Pt is requesting control pillsLMP: 09/22/2023UP [...] pharmacy for Lo Loestrin Chlamydial infection 105 946557 A74.9 1. RX for Azithromyc in 1gm PO x 1 sent to the pharmacy. 2. Discussed RTC [...] week to prevent reinfectio n. Morbid obesity 632619249 E66.01 [id number] [facility] [address] [place] [address] 10/27/2023 15:08:48 10/28/2023 14:29:21 Surveillance of oral contraception [id number] Z30.41 Insurance will not cover Lo loestrinWi ll change pills to June06/06New RX called [facility] and it will be covered under her insurance Morbid obesity 661746709 E66.01 [id number] Deepti Mesa MD [facility] (COMPLIANCE PROJECT MANAGER) [address] [place] [address] 12/02/2023 16:06:37 12/03/2023 12:07:53 History of sexually transmitted disease 067426151 Z86.19 STI screening per patient request.Wa s + for chlamydia on 09/08/2023 and was treated. Will do a BELEN today. Morbid obesity 803233412 E66.01 [id number] PATRICIA CHRISTIE NP [facility] (COMPLIANCE PROJECT MANAGER) [address] [place] [address] 09/09/2024 11:12:44 09/12/2024 15:22:24 Gynecologic examination [id number] Z01.946 [id number] Polysomnographic Technologist exam completedT hyroid WNLDenies any family history of breast, ovarian, pancreatic , endometria l cancer 1. Pap done; this is first pap smear2. STI screening completed. Pt verbally consented to HIV3. Pt is using condoms for control.4. Discussed breast self awareness5 . Educated on STI reduction and prevention . Encouraged condom use.6. 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 Obese class III [id number] 5 E66.813 [id number] Venereal d isease screening 715936956 Z11.3 [id number] STI screening per patient request. Patient verbally consented to HIV. Vaginal discharge 821276 006 N89.8 [id number] 1. Vaginal swab obtained 2. Discussed vaginal hygiene, preventive measures and probiotics . Health Concerns Section Related Observation LastModified by Organization Detai ls LastModified Time None Recorded Concern Status LastModified by Organization Details LastModified Time None Recorded Advance Directives Directive None Recorded Payers Insurance Date Sequence Insurance Name Policy Number Policy Tanner Covered Member ID Tanner Member ID Guarantor Name 09/09/2024 COVID19 [employer] Jessica Ferirs [id number] Jessica Ferris 09/09/2024 1 [facility] (MEDICAID HMO) [id number] Jessica Ferris [id number] Jessica Ferris 09/16/2022 SLIDING FEE SCHEDULE - DISCOUNT Jessica Ferris 09/16/2022 1 *SELF PAY* Kely Ferris 09/09/2024 2 MEDICAID-[place]: [facility] Jessica Ferris [id number] Jessica Ferris 02/28/2025 1 [facility] Ant Ferris [id number] Jessica Ferris 09/09/2024 2 [facility]ICAID-[place]: [facility] Jessica Ferris [id number] Jessica Ferris Notes Date Note Type Note Provider Name and Address Organization Details Recorded Time 09/23/2023 text/html ROS as noted in the HPI Jessica bolivar 22yo nulligravicarlie consenting for phone visit today to review her lab results. LMP: 09/22/2023She was seen in the clinic on 09/08/2023 for vaginal odor.Her results came back positive for bacterial vaginosis and chlamydia.She was negative for GC, TV and yeast.All blood work was negative PATRICIA CHRISTIE NP Attn: [address] [place], [address], [facility] 09/23/2023 14:09:03 09/29/2023 text/html ROS as noted in the HPI Jessica bolivar 22yo nulligravida here to initiate contraception. Patient is currently using condoms and would like to start GIORGI. LMP: 09/22/2023Unprotected intercourse in the past 2 weeks: NoLast pap smear: not 21Last STI testin09/08/2023 + for chlamydia Denies any hx of blood clots, stroke, migraines with/without aura, hypertension, lupus, cardiovascular disease, liver disease or cancers.Denies any /BROKE WORKER complaintsPatient is sexually active with a male partner. Patient has had 4 male partners in the past year. PATRICIA CHRISTIE NP Attn: [address] [place], [address], [facility] 09/29/2023 17:15:08 10/27/2023 text/html ROS as noted in the HPI Jessica bolivar 22yo nulligravida consenting for phone visit to [...] take it daily. PATRICIA CHRISTIE NP Attn: [address] [place], [address], [facility] 10/27/2023 15:23:56 12/02/2023 text/html ROS as noted in the [facility] Jessica bolivar 22yo nulligravida here for test of cure today. LMP: 4Denies any vaginal discharge, odor, burning or itching.Denies dyspareunia, dysuria, frequency, urgency or incomplete emptying.Denies flank or abdominal pain. Denies fever, chills, n/v.Denies a new sex partner.Patient is sexually active with a male partner. Patient has had 4 male partners in the past year.Denies unprotected intercourse.Current contraception: COCSTI screening per patient request. Was + for chlamydia on 09/08/2023 and was treated. Will do a BELEN today. 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 Reports regular menstrual cycles with 5 days of moderate flow using 8 pads/tampon on their heaviest day. Denies any /BROKE WORKER complaints. Denies any breast changes/pain, fatigue/cold intolerance/hair loss/dry skin. Denies dyspareunia, pelvic pressure or bowel movement changes.Denies SOB/chest pain/dizziness. Denies any fever or chills. Denies any family history of breast, ovarian, endometrial or pancreatic cancer. LMP: 08/22/2024Last pap smear: never had onePap due: TodayPatient is not sexually active for the past 4 months. Patient has had 1 male partner in the past year.Current contraception is condomsPatient is happy with methodDesires STI testing today. Verbal consent given for HIV testing. PATRICIA CHRISTIE NP Attn: [address] [place], [address], [place] [facility] 09/09/2024 12:06:01 OBGyn Episode No OBEpisode recorded.
[2025-03-11 17:27] LABS: Alanine Aminotransferase 11 U/L (6-35); Albumin Level 3.9 g/dL (3.5-5.1); Alkaline Phosphatase 51 U/L (38-126); Anion Gap 8 mmol/L (4-12); Aspartate Amino Transferase 25 U/L (14-36); Bilirubin,Total 0.3 mg/dL (0.2-1.3); Blood Urea Nitrogen 11 mg/dL (7-17); Calcium 8.6 mg/dL (8.4-10.2); Carbon Dioxide 25 mmol/L (22-30); Chloride 104 mmol/L (98-107); Estimated CRCL calculation 146 ml/min; Estimated Glomerular Filt Rate > 60; Glucose 94 mg/dL (65-110); Lipase 57 U/L (23-300); Potassium 3.4 mmol/L (3.4-5.0); Sodium 137 mmol/L (137-145); Total Protein 6.9 g/dL (6.3-8.2)
[2025-03-11 18:37] LABS: Beta HCG Quantitative 6102.40 mIU/ML
[2025-03-11 19:55] VITALS: BP 128/76; PULSE 65; RESP 18; O2SAT 99
== END 2025-03-11 19:56 | disposition home or self-care (01) ==
PROVIDERS: Emergency Provider Physician Assistant
DX: O03.4 Incomplete spontaneous abortion without complication (principal)
CPT/HCPCS: 36415; 76801; 76817; 80053; 83690; 84702; 85025; 85461; 86850; 86900; 86901; 99284

== ENCOUNTER 2025-03-13 14:30 | Emergency (ER) | payer OTHER, SELFPAY ==
[2025-03-13] VITALS (44 sets, daily range): BP systolic 102–168; BP diastolic 59–113; PULSE 73–109; RESP 16–31; TEMP 36.6; O2SAT 99–100
--- NOTE | ~2025-03-13 | US_ITS ---
EXAMINATION: US OB transvaginal DATE: 03/13/2025 19:02 INDICATION: Severe abdominal pain one week post portion TECHNIQUE: Multiple transabdominal and endovaginal sonographic images of the pelvis were obtained. COMPARISON: None. FINDINGS: The uterus measures 10.4 x 5.6 x 5.6 cm. The endometrial complex measures 10 mm mm in thickness at the fundus increasing to 2.3 cm at the lower uterine segment. No definitive internal vascular flow on color Doppler. The right ovary measures 4.1 x 2.4 x 1.7 cm. The left ovary measures 3.3 x 2.4 x 2.3 cm. Vascular flow identified in both ovaries on color Doppler. There is small amount of anechoic free fluid in the cul-de-sac. IMPRESSION: 1. No significant change in a thickened echogenic endometrial complex in the lower uterine segment measuring up to 2.3 cm without definitive internal vascular flow on color Doppler but which could still represent avascular retained products of conception. Reviewed, dictated and finalized at location A. IMPRESSION: 1. No significant change in a thickened echogenic endometrial complex in the lo wer uterine segment measuring up to 2.3 cm without definitive internal vascular flow on color Doppler but which could still represent avascular retained produ cts of conception.
--- NOTE | 2025-03-13 14:47 | ED_ITS ---
HPI - Abdominal Pain General Chief Complaint: Abdominal Pain <TOM Mccormack - Last Filed: 03/13/25 15:25> Stated Complaint: abdominal pain x today. <TOM Mccormack - Last Filed: 03/13/25 15:25> Time Seen by Provider: 03/13/25 15:25 <TOM Mccormack - Last Filed: 03/13/25 15:25> Focused HPI: Recent last week, medicinal only. No physical. No urinary symptoms. Has abdominal and back pain. + Vaginal bleeding. Reports she did pass tissue after taking the pills. Was here thursday that she had more bleeding to do and was discharged to home. Taking Motrin for pain without any relief of symptoms and now having nausea and vomiting. GENERAL: Well-appearing, well-nourished, obese in acute pain distress. VSS CHEST: Clear to auscultation. ?No respiratory distress. HEART: Regular rate and rhythm.? NEURO: ?Alert and oriented x3. ABDOMINAL: Diffuse pain, worse in the lower abdomen. TTP with some guarding. Patient screened in triage and initial orders placed.? ?Additional care and disposition to be based upon?diagnostic testing and treatment. <TOM Mccormack - Last Filed: 03/13/25 15:25> Source: patient <TOM Mccormack - Last Filed: 03/13/25 15:25> Mode of arrival: ambulatory <TOM Mccormack - Last Filed: 03/13/25 15:25> Limitations: no limitations <TOM Mccormack - Last Filed: 03/13/25 15:25> History of Present Illness HPI narrative: I agree with the above HPI. <Aaliyah Salgado APRN - Last Filed: 03/13/25 21:05> Related Data Allergies/Adverse Reactions: Allergies Allergy/AdvReac Type Severity Reaction Status Date / Time No Known Allergies Allergy Verified 03/11/25 16:55 <TOM Mccormack - Last Filed: 03/13/25 15:25> Review of Systems 2 Review of Systems: All systems reviewed & are unremarkable except as noted in HPI and below <Aaliyah Salgado APRN - Last Filed: 03/13/25 21:05> PMFSH Past Medical History Medical History: Medical History Healthy female adult <TOM Mccormack - Last Filed: 03/13/25 15:25> Surgical History Surgical History: Surgical History No history of previous surgery <TOM Mccormack - Last Filed: 03/13/25 15:25> Exam 2 Narrative: GENERAL: Well appearing, well-nourished, non-toxic, in no acute distress. HEAD: Normocephalic, atraumatic. NECK: Supple. No adenopathy, no masses. RESPIRATORY: Airway patent, respirations nonlabored. Clear to auscultation bilaterally, no rales, rhonchi, wheezing. CARDIOVASCULAR: Regular rate and rhythm without murmurs, rubs, or gallops. Peripheral pulses 2+ and equal bilaterally. ABDOMINAL: Soft, nontender, nondistended, no hepatosplenomegaly. Normoactive BS. MUSCULOSKELETAL: Moves all extremities. Strength/ROM intact without gross deformities. SKIN: Warm, dry, normal color. No rashes. NEURO: A&O X3. Speech clear. Cranial nerves II-XII intact. No ataxic movements. PSYCHIATRIC: Appropriate mood and affect. Normal interaction. <Aaliyah Salgado APRN - Last Filed: 03/13/25 21:05> Course Vital Signs Vital signs: Vital Signs Temperature 36.6 C 03/13/25 14:31 Pulse Rate 83 03/13/25 14:31 Respiratory Rate 16 03/13/25 14:31 Blood Pressure 133/86 03/13/25 14:31 Pulse Oximetry 100 03/13/25 14:31 Oxygen Delivery Room Air 03/13/25 14:31 Temperature 36.6 C 03/13/25 14:31 Pulse Rate 77 03/13/25 18:01 Respiratory Rate 22 H 03/13/25 18:01 Blood Pressure 123/81 03/13/25 20:31 Pulse Oximetry 100 03/13/25 20:45 Oxygen Delivery Room Air 03/13/25 14:31 <TOM Mccormack - Last Filed: 03/13/25 15:25> Vital Signs Temperature 36.6 C 03/13/25 14:31 Pulse Rate 83 03/13/25 14:31 Respiratory Rate 16 03/13/25 14:31 Blood Pressure 133/86 03/13/25 14:31 Pulse Oximetry 100 03/13/25 14:31 Oxygen Delivery Room Air 03/13/25 14:31 Temperature 36.6 C 03/13/25 14:31 Pulse Rate 77 03/13/25 18:01 Respiratory Rate 22 H 03/13/25 18:01 Blood Pressure 123/81 03/13/25 20:31 Pulse Oximetry 100 03/13/25 20:45 Oxygen Delivery Room Air 03/13/25 14:31 <Aaliyah Salgado APRN - Last Filed: 03/13/25 21:05> MDM - Abdominal Pain MDM Narrative Medical decision making narrative: Recent last week, medicinal only. No physical. No urinary symptoms. Has abdominal and back pain. + Vaginal bleeding. Reports she did pass tissue after taking the pills. Was here Thursday that she had more bleeding to do and was discharged to home. Taking Motrin for pain without any relief of symptoms and now having nausea and vomiting. Labs Ordered: CBC, CMP, lactic acid, UA, beta hCG Imaging Ordered: Ultrasound pelvic limited Medications Ordered: None necessary Results: Patient's hemoglobin is stable from 2 days ago. Her hCG has dropped from 6000 to 2200. Her urinalysis indicates a urinary tract infection. Diagnosis: Urinary tract infection, incomplete Consults: 2100- Spoke with Dr. Kiel Alba OBGYN, who advised pt should call his office tomorrow morning and he will see her tomorrow during the day. Patient Education/Shared MDM: Results of lab work and imaging shared with patient. Patient strongly advised to maintain hydration status upon discharge and follow-up with an OBGYN tomorrow, as discussed. She will be discharged home with a prescription for Ibuprofen 800mg. Strict return precautions provided. Patient verbalized understanding and is in agreement with plan. Vital signs stable at time of discharge. All questions answered. <Aaliyah Salgado APRN - Last Filed: 03/13/25 21:05> Differential Diagnosis Differential diagnosis: Likely abdominal pain and other (Urinary tract infection, incomplete , vaginal bleeding) <Aaliyah Salgado APRN - Last Filed: 03/13/25 21:05> Lab Data Attestation: I reviewed the patient's lab results. <Aaliyah Salgado APRN - Last Filed: 03/13/25 21:05> Result diagrams: 03/13/25 16:33 03/13/25 16:33 <TOM Mccormack - Last Filed: 03/13/25 15:25> Labs: Lab Results 03/13/25 03/13/25 03/13/25 Range/Units 16:33 16:42 16:45 WBC 7.7 (4.5-10.0) K/mm3 RBC 3.88 L (4.2-5.4) M/mm3 Hgb 10.7 L (12.0-15.0) g/dL Hct 33.3 L (37.0-47.0) % MCV 85.8 (80-100) fl MCH 27.6 (26-34) pg MCHC 32.1 (32-36) g/dl RDW 16.0 H (11.5-14.5) % Plt Count 146 L (150-375) k/mm3 MPV 13.6 H (7.4-10.4) fl Immature Gran % (Auto) 0.3 (0-0.5) % Neut % (Auto) 80.2 H (45.5-73.1) % Lymph % (Auto) 12.5 L (18.3-44.2) % Billings % (Auto) 6.1 (2.6-8.5) % Eos % (Auto) 0.3 (0-4.4) % Baso % (Auto) 0.6 (0.2-1.2) % Lymph # (Auto) 0.97 (0.9-3.2) K/mm3 Billings # (Auto) 0.5 (0.1-0.6) K/mm3 Eos # (Auto) 0.0 (0-0.3) K/mm3 Baso # (Auto) 0.1 (0.0-0.1) K/mm3 Abs Immat Gran (auto) 0.02 (0.00-0.031) K/mm3 Absolute Neuts (auto) 6.2 (1.3-6.7) K/mm3 Absolute Nucleated RBC 0.000 (0.0-0.012) K/mm3 Nucleated RBC % 0.0 (0.0-0.2) % % Immature Plt Fraction 9.9 (0.9-11.2) % Sodium 137 (137-145) mmol/L Potassium 3.5 (3.4-5.0) mmol/L Chloride 107 (98-107) mmol/L Carbon Dioxide 24 (22-30) mmol/L Anion Gap 6 (4-12) mmol/L BUN 10 (7-17) mg/dL Creatinine 0.56 L (0.7-1.0) mg/dL Estim Creat Clear Calc 159 ml/min Estimated GFR > 60 (59 - ) Glucose 94 (65-110) mg/dL Lactic Acid 1.2 (0.7-2.0) mmol/L Calcium 8.8 (8.4-10.2) mg/dL Total Bilirubin 0.7 (0.2-1.3) mg/dL AST 27 (14-36) U/L ALT 15 (6-35) U/L Alkaline Phosphatase 47 (38-126) U/L Total Protein 7.3 (6.3-8.2) g/dL Albumin 4.2 (3.5-5.1) g/dL Beta HCG, Quant 2292.70 mIU/ML Urine Color Yellow (Yellow) Urine Appearance Cloudy H (Clear) Urine pH 7.0 (5.0-9.0) Ur Specific Northrop 1.030 (1.001-1.035) Urine Protein 1+ H (Negative) mg/dL Urine Glucose (UA) Negative (Negative) mg/dL Urine Ketones Trace H (Negative) mg/dL Ur Blood (Man) 3+ H (Negative) Urine Nitrate Negative (Negative) Urine Bilirubin Negative (Negative) Urine Urobilinogen 1.0 (<2.0) mg/dL Leukocyte Esterase Rfl 1+ H (Negative) EDMAR/UL Urine RBC 21-50 H (0-2) /hpf Urine WBC 6-10 H (0-3) /hpf Ur Squamous Epith Cells Occasional (Few) /hpf Urine Bacteria 1+ H /hpf Urine Casts 0-2 POC Urine HCG, Qual Positive (Negative) <Peri Valdez APN-Cherelle - Last Filed: 03/13/25 15:25> Lab Results 03/13/25 03/13/25 03/13/25 Range/Units 16:33 16:42 16:45 WBC 7.7 (4.5-10.0) K/mm3 RBC 3.88 L (4.2-5.4) M/mm3 Hgb 10.7 L (12.0-15.0) g/dL Hct 33.3 L (37.0-47.0) % MCV 85.8 (80-100) fl MCH 27.6 (26-34) pg MCHC 32.1 (32-36) g/dl RDW 16.0 H (11.5-14.5) % Plt Count 146 L (150-375) k/mm3 MPV 13.6 H (7.4-10.4) fl Immature Gran % (Auto) 0.3 (0-0.5) % Neut % (Auto) 80.2 H (45.5-73.1) % Lymph % (Auto) 12.5 L (18.3-44.2) % Billings % (Auto) 6.1 (2.6-8.5) % Eos % (Auto) 0.3 (0-4.4) % Baso % (Auto) 0.6 (0.2-1.2) % Lymph # (Auto) 0.97 (0.9-3.2) K/mm3 Billings # (Auto) 0.5 (0.1-0.6) K/mm3 Eos # (Auto) 0.0 (0-0.3) K/mm3 Baso # (Auto) 0.1 (0.0-0.1) K/mm3 Abs Immat Gran (auto) 0.02 (0.00-0.031) K/mm3 Absolute Neuts (auto) 6.2 (1.3-6.7) K/mm3 Absolute Nucleated RBC 0.000 (0.0-0.012) K/mm3 Nucleated RBC % 0.0 (0.0-0.2) % % Immature Plt Fraction 9.9 (0.9-11.2) % Sodium 137 (137-145) mmol/L Potassium 3.5 (3.4-5.0) mmol/L Chloride 107 (98-107) mmol/L Carbon Dioxide 24 (22-30) mmol/L Anion Gap 6 (4-12) mmol/L BUN 10 (7-17) mg/dL Creatinine 0.56 L (0.7-1.0) mg/dL Estim Creat Clear Calc 159 ml/min Estimated GFR > 60 (59 - ) Glucose 94 (65-110) mg/dL Lactic Acid 1.2 (0.7-2.0) mmol/L Calcium 8.8 (8.4-10.2) mg/dL Total Bilirubin 0.7 (0.2-1.3) mg/dL AST 27 (14-36) U/L ALT 15 (6-35) U/L Alkaline Phosphatase 47 (38-126) U/L Total Protein 7.3 (6.3-8.2) g/dL Albumin 4.2 (3.5-5.1) g/dL Beta HCG, Quant 2292.70 mIU/ML Urine Color Yellow (Yellow) Urine Appearance Cloudy H (Clear) Urine pH 7.0 (5.0-9.0) Ur Specific Northrop 1.030 (1.001-1.035) Urine Protein 1+ H (Negative) mg/dL Urine Glucose (UA) Negative (Negative) mg/dL Urine Ketones Trace H (Negative) mg/dL Ur Blood (Man) 3+ H (Negative) Urine Nitrate Negative (Negative) Urine Bilirubin Negative (Negative) Urine Urobilinogen 1.0 (<2.0) mg/dL Leukocyte Esterase Rfl 1+ H (Negative) EDMAR/UL Urine RBC 21-50 H (0-2) /hpf Urine WBC 6-10 H (0-3) /hpf Ur Squamous Epith Cells Occasional (Few) /hpf Urine Bacteria 1+ H /hpf Urine Casts 0-2 POC Urine HCG, Qual Positive (Negative) <Aaliyah Salgado APRN - Last Filed: 03/13/25 21:05> Imaging Data Attestation: I personally reviewed and interpreted this imaging study as follows: < Aaliyah Salgado APRN - Last Filed: 03/13/25 21:05> Radiologist's impression: ITS Impressions Transvaginal US 03/13/25 19:15 IMPRESSION: 1. No significant change in a thickened echogenic endometrial complex in the lower uterine segment measuring up to 2.3 cm without definitive internal vascular flow on color Doppler but which could still represent avascular retained products of conception. <TOM Mccormack - Last Filed: 03/13/25 15:25> ITS Impressions Transvaginal US 03/13/25 19:15 IMPRESSION: 1. No significant change in a thickened echogenic endometrial complex in the lower uterine segment measuring up to 2.3 cm without definitive internal vascular flow on color Doppler but which could still represent avascular retained products of conception. <Aaliyah Salgado, COMMERCIAL MANAGER - Last Filed: 03/13/25 21:05> Discharge Plan Discharge Clinical Impression: Incomplete , Urinary tract infection, Abnormal vaginal bleeding <TOM Mccormack - Last Filed: 03/13/25 15:25> Patient Disposition: Home <TOM Mccormack - Last Filed: 03/13/25 15:25> Condition: Stable <TOM Mccormack - Last Filed: 03/13/25 15:25> Instructions: Antibiotic Form, Miscarriage (ED) <TOM Mccormack - Last Filed: 03/13/25 15:25> Additional Instructions: Please return to the ER with any worsening symptoms. Follow-up with OBGYN tomorrow, as discussed. Take all medications as prescribed, including regularly scheduled medications. Complete your full dose of antibiotics. You may take Tylenol and Ibuprofen together for pain control. <TOM Mccormack - Last Filed: 03/13/25 15:25> Patient Language: Georgian <TOM Mccormack - Last Filed: 03/13/25 15:25> Prescriptions: New sulfamethoxazole-trimethoprim [Bactrim DS] 800-160 mg tablet 1 tablet PO Q12H 5 Days Qty: 10 0RF ibuprofen 600 mg tablet 600 mg PO TID PRN (Reason: fever or pain) Qty: 30 0RF <TOM Mccormack - Last Filed: 03/13/25 15:25> Follow-up/Referrals: Pablo Malone MD [Physician, METAL WIRE COATING OPERATOR] Referral Note: OBGYN [facility],Healthcare [Primary Care Provider, Unknown] <TOM Mccormack - Last Filed: 03/13/25 15:25> Stand Alone Forms: Work/School Release IP <TOM Mccormack - Last Filed: 03/13/25 15:25> Time of Disposition: 21:04 <TOM Mccormack - Last Filed: 03/13/25 15:25> 21:04 <Aaliyah Salgado APRN - Last Filed: 03/13/25 21:05>
--- OUTSIDE RECORDS SUMMARY | 2025-03-13 16:10 | XMS_ITS | Clinical Summary ---
Author Organization [facility] Address [address], [address] [place] [address] Phone Care Team Providers Care Tea Tree Farm Worker Name Role Phone Nicholas Marquez MD Primary Care Provider [phone] Allergies No known active allergies Medications No [...] Bexsero SCDM 2-dose series) 10/24/2021 04/25/2021 DTaP/Tdap/Td Immunization (8 - Td or Tdap) 09/29/2024 09/29/2014, 09/19/2014, 02/01/2008, Additional history exists Influenza Immunization (#1) 2025 04/25/2021 SARS-COV-2 Immunization (2 - season) 2025 04/25/2021 Respiratory Syncytial Virus (RSV) Immunization (Adult) (1 [...] to complete this topic Insurance [place] [address] Care Teams Tea Tree Farm Worker Relationship Specialty Start Date End Date Nicholas Marquez MD [address] [place] [address] PCP - General Obstetrics & Gynecology 11/11/22
--- OUTSIDE RECORDS SUMMARY | 2025-03-13 16:11 | XMS_ITS | Clinical Summary ---
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
[2025-03-13 16:44] LABS: Hematocrit 33.3 % (37.0-47.0); Hemoglobin 10.7 g/dL (12.0-15.0); Immature Granulocyte Percent A 0.3 % (0-0.5); Immature Platelet Fraction Pct 9.9 % (0.9-11.2); Lymphocytes Absolute Auto 0.97 K/mm3 (0.9-3.2); Mean Corpuscular HGB Conc 32.1 g/dl (32-36); Mean Corpuscular Hemoglobin 27.6 pg (26-34); Mean Corpuscular Volume 85.8 fl (80-100); Nucleated Red Blood Cells Absolute Auto 0.000 K/mm3 (0.0-0.012); Nucleated Red Blood Cells Perc 0.0 % (0.0-0.2); Platelet Count Result 146 k/mm3 (150-375); Red Blood Count 3.88 M/mm3 (4.2-5.4); White Blood Count 7.7 K/mm3 (4.5-10.0)
[2025-03-13 16:47] LABS: BEDSIDEPREGUCG Positive (Negative)
[2025-03-13 16:53] LABS: Add Urine Microscopic? YES; Appearance Urine Cloudy (Clear); Glucose Urine UA Negative (Negative); Leukocyte Esterase Ur 1+ LEU/UL (Negative); Nitrate Urine Negative (Negative); Non Pathogenic Casts 0-2; Specific Grav Ur 1.030 (1.001-1.035)
[2025-03-13 16:56] LABS: Alanine Aminotransferase 15 U/L (6-35); Albumin Level 4.2 g/dL (3.5-5.1); Alkaline Phosphatase 47 U/L (38-126); Anion Gap 6 mmol/L (4-12); Aspartate Amino Transferase 27 U/L (14-36); Bilirubin,Total 0.7 mg/dL (0.2-1.3); Blood Urea Nitrogen 10 mg/dL (7-17); Calcium 8.8 mg/dL (8.4-10.2); Carbon Dioxide 24 mmol/L (22-30); Chloride 107 mmol/L (98-107); Estimated CRCL calculation 159 ml/min; Estimated Glomerular Filt Rate > 60; Glucose 94 mg/dL (65-110); Potassium 3.5 mmol/L (3.4-5.0); Sodium 137 mmol/L (137-145); Total Protein 7.3 g/dL (6.3-8.2)
[2025-03-13 17:13] LABS: Beta HCG Quantitative 2292.70 mIU/ML
--- OUTSIDE RECORDS SUMMARY | 2025-03-13 17:16 | XMS_ITS | Clinical Summary ---
Author Organization [facility] Address [address] [place] [address] Phone Care Team Providers Care Machine Repairman Name Role Phone Nicholas Marquez MD Primary Care Provider [phone]- [phone] Allergies No known active allergies Medications No [...] to complete this topic Insurance [place] [address] [address] Care Teams Machine Repairman Relationship Specialty Start Date End Date Nicholas Marquez MD [address] [place] [address] PCP - General Obstetrics & Gynecology 11/11/22
--- OUTSIDE RECORDS SUMMARY | 2025-03-13 17:16 | XMS_ITS | Clinical Summary ---
Author Organization [place] [id number] 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 PLAN [facility] [place] Care Teams Morning Nanny Relationship Specialty Start Date End Date Unknown, Notinfile PCP - General 12/25/23
[2025-03-13] MEDS: IBUPROFEN 400 MG TABLET 800 MG PO (21:19)
[2025-03-13] MEDS: ACETAMINOPHEN 500 MG TABLET 1000 MG PO (21:19)
[2025-03-13] MEDS: SULFAMETHOXAZOLE/TRIMETHOPRIM 800/160 MG DS TABLET 1 TAB PO (21:19)
== END 2025-03-13 21:25 | disposition home or self-care (01) ==
PROVIDERS: Nurse Practitioner Adult Health; Emergency Provider Registered Nurse
DX: O03.4 Incomplete spontaneous abortion without complication (principal); O03.38 Urinary tract infection following incomplete spontaneous abortion; N39.0 Urinary tract infection, site not specified
CPT/HCPCS: 36415; 76817; 80053; 81001; 81025; 83605; 84702; 85025; 85055; 87086; 99283; 99284; A9270

== ENCOUNTER 2025-03-15 01:06 | Day surgery (SDC) | payer OTHER, SELFPAY ==
--- NOTE | 2025-03-14 11:15 | SUR.PREOP ---
[facility] has started construction of its new state of the art ER which will open Spring 2026. With this, we anticipate parking may be a challenge for some our surgical patients and families. Parking spaces are limited but are available for all Surgical, obstetrics, and ER patients sharing this lot. If you arrive and find you are having a hard time finding a parking space, please note that we understand the challenges, please drive around the hospital and park near Hospital Entrance 1. When you enter this entrance, you can ask a volunteer to direct or take you back to the surgical waiting area to check in. We appreciate everyone?s understanding of these expected challenges while we build for your future. Report to the Outpatient Waiting Room, entrance under the green pavilion located off [address], at time _1130AM_ on date _03/15/25__. Planned Procedure Time: _130PM__.? Time changes happen often and if your time is changed the preop area will call you the afternoon before. - You and your visitor will be asked to self-screen and do not enter if you have any COVID symptoms. Please call surgeon if you need to reschedule. - A mask is optional within the hospital at this time. Patients may have clear liquids (water, carbonated beverages, clear teas, apple juice) until 3 hours prior to surgery with a maximum of 20 ounces. - No food from midnight until time of surgery and no smoking, or chewing tobacco (or any form of nicotine). No chewing gum, candy or mints. . Take only the following medications with a SIP of water on the morning of surgery: __None__ DO NOT STOP ANY OF YOUR OTHER PRESCRIPTION MEDICATIONS PRIOR TO SURGERY EXCEPT THE FOLLOWING Hold all vitamins and supplements for 3 days per anesthesiologist. Medications to discontinue per physician __none__ Date to take last dose__None__ Please no make-up, nail latvian, hairspray, perfume, deodorant, or body powder the day of surgery.? No jewelry (including any body piercings) or valuables the day of surgery, leave them at home.? Please take a shower or bath the night before, or the morning of, surgery with an antibacterial soap.? Wear comfortable, loose fitting clothing.? - Jewelry must be removed prior to entering the operating room.? Rings and piercings that are not removed may be cut off. - The hospital will not accept responsibility for valuables.? - Please leave all valuables, including medications, at home the day of surgery. If you are going home after surgery, a licensed stacker driver must drive you home.? - NO public transportation without another adult if you receive anesthesia. - We recommend that an adult stay with you for 24 hours following discharge. - We also recommend that you do not drive, make important decision, drink alcoholic beverages, or take any drugs that were not prescribed by your health care provider for at least 24 hours after your discharge time. Follow any additional instructions given to you from your surgeon. Telephone instructions given to __Jessica___and asked if any additional questions and then verbalized understanding. Patient advised to call surgeon office or pre surgery nurse liaison [phone] if any additional questions.
[2025-03-14 11:44] VITALS: BMI 51.2
--- OUTSIDE RECORDS SUMMARY | 2025-03-15 01:14 | XMS_ITS | Clinical Summary ---
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 CORE HEALTH PLAN [facility] HMO/PPO Address: [id number] [place] [address] [facility] HMO/PPO Address: [id number] [place] [address] [facility] [place] Care Teams Sailboat Captain Relationship Specialty Start Date End Date Unknown, Notinfile PCP - General 12/25/23
--- OUTSIDE RECORDS SUMMARY | 2025-03-15 01:14 | XMS_ITS | Data Portability ---
[facility] Organization [facility] Address [address] [place] [address] Care Team Providers Care Data Warehouse Administrator Name Role Phone ANUJ MORENO Primary Care Provider [phone] Assessment No assessment recorded. Plan of Treatment Reminders Order Date Submit Date Provider Last Modified By Organization Details Last Modified Time Details Appointments None recorded. Lab vaginal pathogens panel, MAYCOL+probe, vaginal fluid 2024 025 [facility], [address], [place], [address], 5 06:12:03 cytology report, thin prep, smear or scraping, cervical or vaginal 2024 025 [facility], [address], [place], [address], 17:23:01 HIV 1 + 2, meaningful use set 2024 025 [facility], [address], [place], [address], 5 06:12:07 RPR (rapid plasma reagin), serum 2024 025 [facility], [address], [place], [address], 5 06:12:05 HBsAg (hepatitis B surface Ag), EIA, serum 2024 025 [facility], [address], [place], [address], 5 06:12:04 Hepatitis C IgG Ab, qual, serum 2024 025 [facility], [address], [place], [address], 5 06:12:02 chlamydia trachomatis + neisseria gonorrhoeae + trichomonas vaginalis DNA panel, MAYCOL+probe, unspecified specimen 2023 024 [facility], [address], [place], [address], 4 07:14:28 test, urine 2023 024 [email or web address] 0 In-Office Order, Internal Use Only DO Not Attach Compendium DO Not Attach Compendium, Do Not Delete/merge, [id number] 4 17:09:22 Referral None recorded. Procedures None recorded. Surgeries None recorded. Imaging None recorded. Medication Orders azithromyci n 500 mg tablet 2023 024 [id number], [address], [place], [id number], 4 16:11:28 Lo Loestrin Fe 1 mg-10 mcg (24)/10 mcg (2) tablet 2023 024 [email or web address] 0 [id number], [address] [facility], [place], [place], [id number], 4 15:23:08 Patient TargetsNo targets recorded. Patient Instructions Encounter Date Encounter Id Patient Instructions Last Modified By Organization Details Last Modified Time 09/23/2023 [id number] You currently have a chlamydia infection. This [...] for sexually transmitted infection and unplanned . [email or web address] Not available 09/23/2023 12:09:28 09/29/2023 [id number] A healthy lifestyle: care instructions [email or web address] Not available 09/29/2023 17:09:21 1. Start your [...] pills and go to the nearest ER. [email or web address] Not available 09/29/2023 16:46:01 10/27/2023 [id number] A healthy lifestyle: care instructions [email or web address] Not available 10/27/2023 15:22:40 1. Start your [...] pills and go to the nearest ER. [email or web address] Not available 10/27/2023 15:22:24 12/02/2023 [id number] A healthy lifestyle: care instructions [email or web address] Not available 12/02/2023 16:30:17 Do NOT douche [...] for sexually transmitted infection and unplanned . [email or web address] Not available 12/02/2023 16:14:35 09/09/2024 [id number] A healthy lifestyle: care instructions Not available 09/09/2024 11:45:05 Your women's health [...] for sexually transmitted infection and unplanned . [email or web address] Not available 09/09/2024 11:44:38 Reason for Referral [...] ate HCV infec tion. Not Available [facility] ([facility]) [address] [facility], [place], [address], 09/09/2023 13:10:03 09/08/19 24 09/09/2023 HCV ANTIB HAMIDA RFX TO QUANT PCR HCV Ab Non Reacti ve nonrea ctive Not Available [facility] ([facility]) [address] [place], [address], 09/09/2023 13:10:04 09/08/19 24 09/09/2023 HBSAG SCREE N HBsAg screen Negati ve negati ve Not Available [facility] ([facility]) [address] [place], [address], 09/09/2023 13:10:05 09/08/19 24 09/09/2023 RPR, RFX QN RPR/C ONFIR M TP RPR Non Reacti ve nonrea ctive Not Available [facility] ([facility]) [address] [place], [address], 09/09/2023 13:10:06 09/08/19 24 09/09/2023 HIV AB/P2 4 AG WITH REFLE X HIV Ab/P24 Ag screen Non Reacti ve nonrea ctive HIV Negat marylou HIV-1 /HIV- 2 antib odies and HIV-1 p24 antig en were NOT detec cally. There is no labor atory evide nce of HIV infec tion. Not Available [facility] ([facility]) [address] [facility], [place], [address], 09/09/2023 13:10:07 09/08/19 24 09/10/2023 NUA B VAGIN ITIS PLUS (VG+) atopobium vaginae HIGH - 2 score abnormal Not Available [facility] ([facility]) [address] [facility], [place], [address], 09/10/2023 20:09:07 09/08/19 24 09/10/2023 NUA B VAGIN ITIS PLUS (VG+) bvab 2 HIGH - 2 score abnormal Not Available [facility] ([facility]) [address] [facility], [place], [address], 09/10/2023 20:09:07 09/08/19 24 09/10/2023 NUA B [...] Drug Admin istra tion. Not Available [facility] ([facility]) [address] [facility], [place], [address], 09/10/2023 20:09:07 09/08/19 24 09/10/2023 NUA B VAGIN ITIS PLUS (VG+) janine albicans, MAYCOL NEGATI VE negati ve Not Available [facility] ([facility]) [address] [facility], [place], [address], 09/10/2023 20:09:07 09/08/19 24 09/10/2023 NUA B VAGIN ITIS PLUS (VG+) janine glabrata, MAYCOL NEGATI VE negati ve Not Available [facility] ([facility]) [address] [place], [address], 09/10/2023 20:09:07 09/08/19 24 09/10/2023 NUA B VAGIN ITIS PLUS (VG+) trich vag by MAYCOL NEGATI VE negati ve Not Available [facility] ([facility]) [address] [facility], [place], [address], 09/10/2023 20:09:07 09/08/19 24 09/10/2023 NUA B VAGIN ITIS PLUS (VG+) chlamydia trachomatis, MAYCOL POSITI VE negati ve abnormal Not Available [facility] ([facility]) [address] [place], [address], 09/10/2023 20:09:07 09/08/19 24 09/10/2023 NUA B VAGIN ITIS PLUS (VG+) neisseria gonorrhoeae, MAYCOL NEGATI VE negati ve Not Available [facility] ([facility]) [address] [place], [address], 09/10/2023 20:09:07 09/29/19 24 09/29/2023 pregn bunny test, urine HCG negati ve Not Available In-Office Order Internal Use Only DO Not Attach Compendium DO Not Attach Compendium, Do Not Delete/merge, [id number] 09/29/2023 17:05:39 12/02/19 24 12/04/2023 CT, NG, TRICH VAG BY MAYCOL chlamydia by MAYCOL NEGATI VE negati ve Not Available [facility] ([facility]) [address] [place], [address], 12/04/2023 07:14:28 12/02/19 24 12/04/2023 CT, NG, TRICH VAG BY MAYCOL gonococcus by MAYCOL NEGATI VE negati ve Not Available [facility] ([facility]) [address] [facility], [place], [address], 12/04/2023 07:14:28 12/02/19 24 12/04/2023 CT, NG, TRICH VAG BY MAYCOL trich vag by MAYCOL NEGATI VE negati ve Not Available [facility] ([facility]) [address] [facility], [place], [address], 12/04/2023 07:14:28 09/10/19 25 09/10/2024 INTER PRETA TION: interpretati on: Commen t Not infec cally with HCV unles s early or acute infec tion is suspe cted (whic h may be delay ed in an immun ocomp romis ed indiv idual ), or other evide nce exist s to indic ate HCV infec tion. Not Available [facility] ([facility]) [address] [facility], [place], [address], 09/12/2024 06:12:01 09/10/1909/10/2024 HCV ANTIB HAMIDA RFX TO QUANT PCR HCV Ab NON REACTI VE nonrea ctive Not Available [facility] ([facility]) [address] [place], [address], 09/12/2024 06:12:01 09/10/19 25 09/10/2024 NUSWA B VAGIN ITIS PLUS (VG+) atopobium vaginae LOW - 0 score Not Available [facility] ([facility]) [address] [place], [address], 09/12/2024 06:12:03 09/10/19 25 09/10/2024 NUSWA B VAGIN ITIS PLUS (VG+) bvab 2 LOW - 0 score Not Available [facility] ([facility]) [address] [place], [address], 09/12/2024 06:12:03 09/10/1909/10/2024 NUSWA B VAGIN ITIS [...] prese nce of BV. Not Available [facility] ([facility]) [address] [place], [address], 09/12/2024 06:12:03 09/10/1909/10/2024 NUSWA B VAGIN ITIS PLUS (VG+) janine albicans, MAYCOL NEGATI VE negati ve Not Available [facility] ([facility]) [address] [place], [address], 09/12/2024 06:12:03 09/10/1909/10/2024 NUSWA B VAGIN ITIS PLUS (VG+) janine glabrata, MAYCOL NEGATI VE negati ve Not Available [facility] ([facility]) [address] [place], [address], 09/12/2024 06:12:03 09/10/1909/12/2024 NUSWA B VAGIN ITIS PLUS (VG+) trich vag by MAYCOL NEGATI VE negati ve Not Available [facility] ([facility]) [address] [place], [address], 09/12/2024 06:12:03 04/25/20 25 09/12/2024 NUSWA B VAGIN ITIS PLUS (VG+) chlamydia trachomatis, MAYCOL NEGATI VE negati ve Not Available [facility] ([facility]) [address] [facility], [place], [address], 09/12/2024 06:12:03 09/10/19 25 09/12/2024 NUSWA B VAGIN ITIS PLUS (VG+) neisseria gonorrhoeae, MAYCOL NEGATI VE negati ve Not Available [facility] ([facility]) [address] [facility], [place], [address], 09/12/2024 06:12:03 09/10/19 25 09/10/2024 HBSAG SCREE N HBsAg screen NEGATI VE negati ve Not Available [facility] ([facility]) [address] [facility], [place], [address], 09/12/2024 06:12:04 09/10/19 25 09/10/2024 RPR, RFX QN RPR/C ONFIR M TP RPR NON REACTI VE nonrea ctive Not Available [facility] ([facility]) [address] [facility], [place], [address], 09/12/2024 06:12:05 09/10/19 25 09/10/2024 HIV AB/P2 4 AG WITH REFLE X HIV Ab/P24 Ag screen NON REACTI VE nonrea ctive HIV-1 /HIV- 2 antib odies and HIV-1 p24 antig en were NOT detec cally. There is no labor atory evide nce of HIV infec tion. HIV Negat marylou Not Available [facility] ([facility]) [address] [facility], [place], [address], 09/12/2024 06:12:07 09/10/19 25 09/15/2024 IGP, RFX APTIM A HPV ASCU diagnosis: COMMEN T abnormal EPITH ELIAL CELL ABNOR MALIT Y. LOW GRADE SQUAM OUS INTRA EPITH ELIAL LESIO N (LSIL ). Not Available [facility] ([facility]) [address] [place], [address], 09/15/2024 17:23:01 09/10/19 25 09/15/2024 IGP, RFX APTIM A HPV ASCU specimen adequacy: AMILCAR Mixon Satis guerlineo ry for evalu ation . Endoc ervic al and/o r squam ous metap lasti c cells (endo cervi maria ines compo nent) are prese nt. Not Available [facility] ([facility]) [address] [place], [address], 09/15/2024 17:23:01 09/10/19 25 09/15/2024 IGP, RFX APTIM A HPV ASCU clinician provided ICD10: AMILCAR Mixon Z01.4 19 Not Available [facility] ([facility]) [address] [place], [address], 09/15/2024 17:23:01 09/10/19 25 09/15/2024 IGP, RFX APTIM A HPV ASCU performed by: AMILCAR Malin sh, Cytol ogist (ASCP ) Not Available [facility] ([facility]) [address] [place], [address], 09/15/2024 17:23:01 09/10/19 25 09/15/2024 IGP, RFX APTIM A HPV ASCU electronical ly signed by: AMILCAR dubon MD, Patho logis t Not Available [facility] ([facility]) [address] [place], [address], 09/15/2024 17:23:01 09/10/19 25 09/15/2024 IGP, RFX APTIM A HPV ASCU . . Not Available [facility] ([facility]) [address] [place], [address], 09/15/2024 17:23:01 09/10/19 25 09/15/2024 IGP, RFX APTIM A HPV ASCU pathologist provided ICD10: AMILCAR T R87.6 12 Not Available [facility] ([facility]) [address] [place], [address], 09/15/2024 17:23:01 09/10/19 25 09/15/2024 IGP, RFX [...] ts do occur . Not Available [facility] ([facility]) [address] [place], [address], 09/15/2024 17:23:01 09/10/19 25 09/15/2024 IGP, RFX APTIM A HPV ASCU test methodology: COMMEN T This liqui d based ThinP rep(R ) pap test was scree [place] with the use of an image guide tristan bray. Not Available [facility] ([facility]) [address] [place], [address], 09/15/2024 17:23:01 09/10/19 25 09/15/2024 IGP, RFX APTIM A HPV ASCU . COMMEN T The HPV DNA refle x crite [place] were not met with this speci men resul t there fore, no HPV testi ng was perfo rmed. Not Available [facility] ([facility]) [address] [place], [address], 09/15/2024 17:23:01 Result Notes None recorded. Problems Name Problem SNOMED Code Status Onset Date Resolution Date Notes Provider Name and Address Organization Details Recorded Time Obesity 445863777 Active JUAN CARLOS Ballesteros Attn: Jaylen g,[address] [facility], [place], [address], [facility] 5 15:19:26 Reduced visual acuity 58351854 Active JUAN CARLOS Ballesteros Attn: Jaylen whitley,[address], [place], [address], [facility] 5 15:19:26 Astigmatism 25732335 Active Will Hernandez MD [address] [place], [address], [facility] 5 11:54:17 Problem Notes None recorded. Procedures Surgical History Date Name Laterality Status Provider Name and Address Organization Details Recorded Time Date of Last Pap Smear completed APTRICIA CHRISTIE NP Attn: Accounting,[address], [place], [address], [facility] 09/16/2024 17:29:54 Refraction - Manifest completed Will Hernandez MD [address] [place], [address], [facility] 01/19/2015 11:53:49 Imaging Results None [...] Updated DateTime 09/09/2024 149.86 cm 48.1 kg/m2 972561.1 3 g 84 /min 100/70 mm[Hg] Britni Campos MA [facility] 09/09/2024 11:26:05 Date Recorded Body height Provider Name an d Address Organization Details Last Updated DateTime 09/23/2023 152.4 cm Anant LY Attn: Accounting,[address] [place], [address], [facility] 09/23/2023 12:10:16 Date Recorded Body height Body mass index (BMI) [Percentile] Per age and sex Body mass index (BMI) Body weight Heart rate Systolic And Diastolic Provider Name and Address Organization Details Last Updated DateTime 149.86 cm 99 % 45.2 kg/m2 507050. 69 g 78 /min 80/56 mm[Hg] Jennifer Cooper MA [facility] 16:45:37 Date Recorded Body height Provider Name an d Address Organization Details Last Updated DateTime 10/27/2023 149.86 cm Anant LY Attn: Accounting,[address] [place], [address], [facility] 10/27/2023 15:16:16 Date Recorded Body height Body mass index (BMI) Body mass index (BMI) [Percentile] Per age and sex Body weight Heart rate Systolic And Diastolic Provider Name and Address Organization Details Last Updated DateTime 4 149.86 cm 45.7 kg/m2 99 % 550192. 67 g 84 /min 105/67 mm[Hg] Jennifer Cooper MA [place] [facility] 4 16:14:29 Social History Question Answer Notes LastModified by [employer] Details LastModified Time Tobacco Smoking Status Never Smoker JUAN CARLOS Ballesteros Attn: Accounting,[address] [place], [address], [facility] 09/29/2014 15:17:47 Which Illicit Or Recreational Drugs [...] Functional Status Question Answer Note LastModified by [employer] Details LastModified Time Do you use any [...] N Premature N Anemia N Constipation N Diabetes N Anxiety Disorder N Muscle, Joint, or Bone Problems N Bedwetting N Vision or Eye Problems N Seizures/Epilepsy N Heart Problems/Murmur N Head Injury/Concussion N Cancer N Allergies N Asthma N ADHD N Bladder or Kidney Problems [...] completed PATRICIA CHRISTIE NP Attn: Accounting,[address] [place], [address], [place] [facility] 09/08/2023 15:49:03 IPV 3 completed [place]HOI Goins, [place] [facility] 09/08/2014 16:54:49 IPV 4 completed Ila Tsang [place], [place] [facility] 09/08/2014 16:56:27 IPV 4 completed Ila Tsang [place] [facility] 09/08/2014 16:56:40 IPV 8 completed PATRICIA CHRISTIE, HANDKERCHIEF FOLDER Attn: Accounting,[address] [facility], [place], [address], [place] [facility] 09/08/2023 15:49:03 Hib, unspecified [...] CHRISTIE NP Attn: Accounting,[address] [facility], [place], [address], [place] [facility] 09/08/2023 15:49:03 Hep B, unspecified formulation 3 completed PATRICIA CHRISTIE NP Attn: Accounting,[address] [facility], [place], [address], [place] [facility] 09/08/2023 15:49:03 Hep B, unspecified formulation 4 completed Ila Ts[place] [facility] 09/08/2014 16:58:59 Hep B, unspecified formulation 4 completed Ila Ts[place] [facility] 09/08/2014 16:59:18 varicella 5 completed Ila [place] [facility] 09/08/2014 16:59:33 varicella 8 completed PATRICIA CHRISTIE NP Attn: Accounting,[address] [facility], [place], [address], [place] [facility] 09/08/2023 15:49:03 MMR 5 completed Ila [place] [facility] 09/08/2014 17:00:06 MMR 8 completed PATRICIA CHRISTIE NP Attn: Accounting,[address] [facility], [place], [address], [place] [facility] 09/08/2023 15:49:03 pneumococcal, unspecified [...] 17:01:48 Hep A, unspecified formulation 6 completed Ila [place] [facility] 09/08/2014 17:02:09 Hib, unspecified formulation 5 completed PATRICIA CHRISTIE NP Attn: Accounting,[address] [facility], [place], [address], [place] [facility] 09/08/2023 15:49:03 Hib, unspecified formulation 4 completed PATRICIA CHRISTIE NP Attn: Accounting,[address] [facility], [place], [address], [place] [facility] 09/08/2023 15:49:03 pneumococcal conjugate PCV 7 4 completed PATRICIA CHRISTIE NP Attn: Accounting,[address] [facility], [place], [address], [place] [facility] 09/08/2023 15:49:03 pneumococcal conjugate PCV 7 3 completed PATRICIA CHRISTIE NP Attn: Accounting,[address] [facility], [place], [address], [place] [facility] 09/08/2023 15:49:03 Tdap 5 completed PATRICIA CHRISTIE NP Attn: Accounting,[address] [facility], [place], [address], [place] [facility] 09/08/2023 15:49:03 Hep B, adolescent or pediatric 3 completed PATRICIA CHRISTIE NP Attn: Accounting,[address] [facility], [place], [address], [place] [facility] 09/08/2023 15:49:03 Meningococcal MCV4O 5 completed PATRICIA CHRISTIE NP Attn: Accounting,[address] [facility], [place], [address], [place] [facility] 09/08/2023 15:49:03 Meningococcal MCV4O 5 completed PATRICIA CHRISTIE NP Attn: Accounting,[address] [facility], [place], [address], [place] [facility] 09/08/2023 15:49:03 DTaP-Hep B-IPV 4 completed PATRICIA CHRISTIE NP Attn: Accounting,[address] [facility], [place], [address], [place] [facility] 09/08/2023 15:49:03 DTaP-Hep B-IPV 4 completed PATRICIA CHRISTIE NP Attn: Accounting,[address] [facility], [place], [address], [place] [facility] 09/08/2023 15:49:03 DTaP-Hep B-IPV 3 completed PATRICIA CHRISTIE NP Attn: Accounting,[address] [facility], [place], [address], [place] [facility] 09/08/2023 15:49:03 Tdap 5 completed Not Available [facility] 06/04/2019 02:43:38 meningococcal B, OMV 1 completed [...] ICD10 Code Diagnosis IMO Codes Diagnosis Note [id number] Mathew carlson MD [facility] [address] [place] [address] 09/29/2014 14:19:41 09/29/2014 15:33:42 Well child 822844510 Obesity 603587657 Reduced visual acuity 05445548 [id number] Anuj Moreno MD [address] [address] 12/15/2014 10:28:52 12/18/2014 10:08:32 General examination of patient 864775200 [id number] Will Hernandez MD [facility] [address] [place] [address] 01/19/2015 11:04:22 01/23/2015 12:25:09 Astigmatism 03689347 [id number] Will Hernandez MD [facility] [address] [place] [address] 02/04/2017 09:45:48 02/04/2017 17:39:18 Regular astigmatism 44656574 H52.137 [id number] Anuj Moreno MD [address] [address] 11/04/2017 10:46:18 11/04/2017 16:46:29 Well child 873151446 Z00.129 Diet education 88100375 Z71.3 Exercises education, guidance, and counseling 085749431 Z71.82 [id number] Anuj Moreno MD [address] [address] 04/25/2021 10:53:28 04/26/2021 11:25:10 Adult health examination 224894037 Z00.00 Diet education 14273183 Z71.3 Exercises education, guidance, and counseling 922792796 Z71.82 [id number] Kelechi Cancino MD [address] [address] 04/25/2021 12:04:49 04/26/2021 14:14:24 Administration of SARS-CoV-2 mRNA vaccine 6969079539 Z23 [id number] Deepti Mesa MD [facility] ([facility]WORKER) [address] [place] [address] 09/08/2023 15:23:57 09/09/2023 12:43:54 Gynecologic examination 32090289 Z01.419 Pension Manager exam completedT hyroid WNLDenies any family history of breast, ovarian, pancreatic , endometria l cancer 1. Pap not done; pt is not 212. STI screening completed. Pt verbally consented to HIV3. Pt is using condoms for control.4. Discussed breast self awareness5 . Educated on STI reduction and prevention . Encouraged condom use.6. Discussed when to return to clinic for /[employer] complaints . Venereal d isease screening 000351578 Z11.3 STI screening per patient request. Patient verbally consented to HIV. Contracept ion care management 124675192 Z30.9 Contracept marylou options were discussed. Reviewed GIORGI, patch, ring, progestin only pill, DMPA, Nexplanon and IUD. Benefits, risks, side effects and danger signs discussed. The patient would like to use condoms Vaginal odor 979222440 N 89.8 1. Vaginal swab obtained 2. Discussed vaginal hygiene, preventive measures and probiotics . Morbid obesity 164235905 E66.01 Positive s creening for depression on PHQ-9 (Patient Health Questionnaire 9) 3364461729 95303 Z13.31 PHQ9 today 15Denies any SI or HIDesires counseling at this time. [id number] Deepti Mesa MD [facility] ([facility]) [address] [place] [address] 09/10/2023 16:56:25 09/11/2023 10:16:51 Contraception care management 860040967 Z30.9 Risks of hormonal control reviewed, patient [...] UPT negative will initiate GIORGI. Morbid obesity 462624448 E66.01 [id number] Deepti Mesa MD [facility] ([facility]) [address] [place] [address] 09/23/2023 12:04:53 09/28/2023 15:47:27 Bacterial vaginosis 690357012 N76.0 1. Rx for Metrogel 0.75% 1 applicator (5g) intravagin ally x 5 nights 2. Discussed vaginal hygiene, preventive measures and probiotics . Chlamydial infection 105 013292 A74.9 1. RX for Azithromyc in 1gm [...] x 1 week to prevent reinfectio n. [id number] Deepti Mesa MD [facility] ([facility]) [address] [place] [address] 09/29/2023 16:26:31 09/30/2023 16:23:32 Contraception care management 899551217 Z30.9 Risks of hormonal control reviewed, patient [...] use. Initial pr escription of oral contraception 908662367 Z30.011 Pt is requesting control pillsLMP: 09/22/2023UP [...] pharmacy for Lo Loestrin Chlamydial infection 105 477936 A74.9 1. RX for Azithromyc in 1gm [...] week to prevent reinfectio n. Morbid obesity 837335403 E66.01 [id number] [facility] [address] [place] [address] 10/27/2023 15:08:48 10/28/2023 14:29:21 Surveillance of oral contraception 245845763 Z30.41 Insurance will not cover Lo loestrinWi ll change pills to June06/06New RX called [facility] and it will be covered under her insurance Morbid obesity 630038668 E66.01 [id number] Deepti Mesa MD [facility] ([facility]) [address] [place] [address] 12/02/2023 16:06:37 12/03/2023 12:07:53 History of sexually transmitted disease 896280139 Z86.19 STI screening per patient request.Wa s + for chlamydia on 09/08/2023 and was treated. Will do a BELEN today. Morbid obesity 271468552 E66.01 [id number] PATRICIA CHRISTIE NP [facility] ([facility]) [address] [place] [address] 09/09/2024 11:12:44 09/12/2024 15:22:24 Gynecologic examination 40802927 Z01.650 [id number] Pension Manager exam completedT hyroid WNLDenies any family history of breast, ovarian, pancreatic , endometria l cancer 1. Pap done; this is first pap smear2. STI screening completed. Pt verbally consented to HIV3. Pt is using condoms for control.4. Discussed breast self awareness5 . Educated on STI reduction and prevention . Encouraged condom use.6. Discussed when to return to clinic for /[employer] complaints . Obese class III [id number] E66.813 [id number] Venereal d isease screening [id number] Z11.3 [id number] STI screening per patient request. Patient verbally consented to HIV. Vaginal discharge [id number] 006 N89.8 [id number] 1. Vaginal swab obtained 2. Discussed vaginal [...] [facility] Jessica Ferris [id number] Jessica Ferris 09/09/2024 1 [facility] (MEDICAID HMO) [id number] Jessica Ferris [id number] Jessica Ferris 09/16/2022 SLIDING FEE SCHEDULE - DISCOUNT Jessica Ferris 09/16/2022 1 *SELF PAY* Kely Ferris 09/09/2024 2 [place] [facility] Jessica Ferris [id number] Jessica Ferris 02/28/2025 1 [facility] Ant Ferris [id number] Jessica Ferris 09/09/2024 2 [place] [facility] Jessica Ferris [id number] Jessica Ferris Notes Date Note Type Note [...] negative PATRICIA CHRISTIE NP Attn: [address] [place], [address], [facility] 09/23/2023 14:09:03 09/29/2023 text/html ROS as noted [...] cardiovascular disease, liver disease or cancers.Denies any /[employer] complaintsPatient is sexually active with a male partner. Patient has had 4 male partners in the past year. PATRICIA CHRISTIE NP Attn: [address] [place], [address], [facility] 09/29/2023 17:15:08 10/27/2023 text/html ROS as noted [...] daily. PATRICIA CHRISTIE NP Attn: [address] [place], [address], [facility] 10/27/2023 15:23:56 12/02/2023 text/html ROS as noted in the [facility] Jessica bolivar 22yo nulligravida here for test [...] today. PATRICIA CHRISTIE NP Attn: [address] [place], [address], 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 Reports regular menstrual cycles with 5 days of moderate flow using 8 pads/tampon on their heaviest day. Denies any /[employer] complaints. Denies any breast changes/pain, fatigue/cold intolerance/hair [...] testing. PATRICIA CHRISTIE NP Attn: [address] [place], [address], [place] [facility] 09/09/2024 12:06:01 OBGyn Episode No OBEpisode recorded.
--- NOTE | 2025-03-15 06:08 | P.HP_ITS ---
H&P: HPI History of Present Illness Date/Time: 03/15/25 06:08 Chief Complaint: Incomplete AB Narrative: 24-year-old female 1 para 0 who had pill induced less than a week ago and has not passed her tissue completely she continues to bleed cramps. She will undergo suction dilatation curettage risks and benefits reviewed including not exclusive of , aspiration pneumonia, bleeding, transfusion, perforation injury to bowel, bladder, ureters, or other internal organs with need for open laparotomy. She received the [employer] handout entitled hit dilatation curettage. She had all questions answered. She asked to proceed. Review of Systems Review of Systems: All systems reviewed & are unremarkable except as noted in HPI and below PMFSH Past Medical History Medical History Healthy female adult Surgical History Surgical History No history of previous surgery Social History Social History Smoking status: Light tobacco smoker Additional smoking assessment comments: 2-3 cigarettes/week. Alcohol intake: current Alcohol use details: 2/month Living arrangements: with family Spiritual care concerns: No Meds Home Medications and Allergies Home Medications ?Medication ?Instructions ?Recorded ?Confirmed ?Type No Home Medications 03/14/25 03/14/25 H istory Allergies Allergy/AdvReac Type Severity Reaction Status Date / Time No Known Allergies Allergy Verified 03/14/25 11:32 Exam Const: General: cooperative, healthy appearing, comfortable and overweight Orientation/consciousness: oriented to person, oriented to place and oriented to time HENMT: Head: normal to inspection Resp: Effort & Inspection: normal respiratory effort Cardio: Rate: regular rate Rhythm: regular rhythm Heart sounds: S1 normal heart sound present and S2 normal heart sound present GI: Inspection: normal to inspection : External Female Exam: normal external appearance Speculum Exam - Vagina: normal appearance of the vagina Speculum Exam - Cervix: normal appearance of the cervix Bimanual exam- vagina & uterus: enlarged Bimanual Exam- Adnexa, other: normal adnexae Assessment and Plan Assessment and plan (1) Incomplete : Code(s): O03.4 - Incomplete spontaneous without complication Status: Inactive Plan Proceed with suction dilatation curettage
--- NOTE | 2025-03-15 06:12 | WPDHPUPDATE1 ---
History and Physical Update Update Date/Time: 03/15/25 06:12 History and Physical has been reviewed, including an updated exam of the patient. There are NO changes in the patient's condition. Risks, benefits, and alternatives have been discussed and questions answered. Patient agrees to proceed with procedure.
[2025-03-15 11:24] VITALS: BP 128/91; PULSE 95; RESP 18; TEMP 37; O2SAT 100
[2025-03-15 11:28] VITALS: BMI 51.5
[2025-03-15] MEDS: ACETAMINOPHEN 500 MG TABLET 1000 MG PO (11:45)
--- NOTE | 2025-03-15 12:02 | P.PNAN_ITS ---
Anes - Initial Pre Proc Eval Procedure: Operation Date: 03/15/25 13:30 Proposed Procedures p Suction Dilatation and Curettage - Pablo Meyer MD Date/Time: 03/15/25 12:02 Surgeon: Pablo Meyer MD Pre Op Diagnosis: incomplete AB Patient Data Age: 24 Gender: F Height: 1.52 m Weight: 119.6 kg Last Vital Signs Temp 37.0 C 03/15/25 11:24 Pulse 95 03/15/25 11:24 Resp 18 03/15/25 11:24 BP 128/91 H 03/15/25 11:24 Pulse Ox 100 03/15/25 11:24 O2 Del Method Room Air 03/15/25 11:24 Allergies Allergy/AdvReac Type Severity Reaction Status Date / Time No Known Allergies Allergy Verified 03/14/25 11:32 Home Medications ?Medication ?Instructions ?Recorded ?Confirmed ?Type hydrocodone 5 mg-acetaminophen 325 1 tablet PO Q4H PRN pain #14 tabs 03/15/25 Rx mg tablet Patient hx anesthesia problems: none Family hx anesthesia problems: none Results Review: All pre-operative results and documents have been reviewed as part of the pre- operative evaluation. [facility] Past Medical History Medical History Healthy female adult Surgical History Surgical History No history of previous surgery Social History Social History Smoking status: Light tobacco smoker Additional smoking assessment comments: 2-3 cigarettes/week. Alcohol intake: current Alcohol use details: 2/month Living arrangements: with family Spiritual care concerns: No Anes - Eval Final PreProcedure Day of Procedure 03/15/25 12:02 Patient weight: super morbidly obese Heart: regular rate and rhythm Lungs: clear to auscultation Airway: Mallampati scale class II Neurological: alert and oriented Last oral intake: >/= 8 hours ASA classification: III Emergent: no Anesthetic plan: proceed Anesthesia type and monitoring: general GIVS and standard monitoring Results Review: All pre-operative results and documents have been reviewed as part of the pre- operative evaluation. Informed Consent: The patient's anesthetic plan and its attendant risks and benefits were discussed with the patient/family/POA. Questions were solicited and answers provided to the satisfaction of the patient/family/POA.
--- NOTE | 2025-03-15 12:43 | S_PTH ---
PATIENT: Jessica Ferris LOC: [facility] U#:[id number] AGE/SX: 24/F ROOM: RE03/15/[address]: Pablo Meyer MD : 2000 BED: DIS: 03/15/2025 SPEC #: [id number] RECD: 03/15/25 13:26 STATUS: RICCI REQ #: [id number] KIM: 03/15/25 12:[address]: Pablo Malone DEPT: [facility] Surgical RECD BY: Fanny Boggs ENTERED: 03/15/25 13:26 SP TYPE: Surgical OTHR DR: Aicha Quispe Tissues: A - Uterine Contents Procedures: Hematoxylin and Eosin Stain Gross and Microscopic Level 4
[2025-03-15] MEDS: KETOROLAC 15 MG/ML VIAL (*BKC) IV PUSH (12:44)
[2025-03-15 12:50] VITALS: BP 117/74; PULSE 73; RESP 14; O2SAT 100
[2025-03-15] MEDS: LACTATED RINGERS 1,000 ML 30 ML IV CONT (12:50)
--- NOTE | 2025-03-15 12:52 | W.PM.PROC2 ---
Procedure Note - Detailed Date of Procedure 03/15/25 Pre-op Diagnosis incomplete AB Post-op Diagnosis Same Procedure Performed Suction dilatation curettage Surgeon Pablo Meyer MD Anesthesia MAC and Local Indications 24-year-old female with incomplete AB Findings Uterus sounded at 9cm. Tissue consistent with products conception Description of Procedure Patient was prepped draped in the normal sterile fashion placed in dorsal lithotomy position under excellent IV sedation weighted speculum placed posterior fornix vagina. Anterior lip of the cervix grasped with a single-tooth tenaculum. Two 0.5cc of 1% xylocaine anesthesia placed at 2, 4, 8, 10:00 a.m. of the cervix. Uterus sounded to 9cm. Serial dilatation with fragmented dilators performed followed by passage of the 9. Suction curette a moderate amount of tissue was removed when a good grating sound was heard the instruments withdrawn. Blood loss was estimated 25cc patient was awakened went recovery in satisfactory condition. All sponge, needle, instrument counts were correct. There were no immediate complications Estimated Blood Loss 25 Drains No Packing No Pathology Yes Complications No immediate complications Condition Stable Disposition PACU
[2025-03-15 13:20] VITALS: BP 116/78; PULSE 85; RESP 16
[2025-03-15 13:50] VITALS: BP 112/70; PULSE 66; RESP 16
--- NOTE | 2025-03-15 14:00 | SUR.PHASEII ---
IV removed, vitals stable. patient dressed and waiting for ride home.
== END 2025-03-15 14:13 | disposition home or self-care (01) ==
PROVIDERS: PCP Nurse Practitioner Women's Health; Visit Provider Obstetrics & Gynecology
PROC: (CPT 59812; principal; 2025-03-15 13:30)
DX: O03.4 Incomplete spontaneous abortion without complication (principal); F17.210 Nicotine dependence, cigarettes, uncomplicated; Z79.891 Long term (current) use of opiate analgesic
CPT/HCPCS: 59812; 88305; A9270; J1885; J2003; J2250; J2405; J2704; J3010; J7120